=== PATIENT | female | born 1940 | race Caucasian/White ===

== ENCOUNTER → 2016-07-12 | Outpatient (CLI) | payer MEDICARE, BC ==
--- NOTE | 2016-07-12 12:13 | BD ---
EXAMINATION TYPE: MG DEXA axial skeleton. DATE OF EXAM: 07/12/2016 11:13 AM COMPARISON: NONE CLINICAL HISTORY: M81.0 OSTEOPOROSIS Height: 64.3 Weight: 159 FRAX RISK QUESTIONS: Alcohol (3 or more units per day): NO Family History (Parent hip fracture): NO BROKEN HIP Glucocorticoids (More than 3mos): NO (Ex: prednisone, prednisolone, methylprednisolone, dexamethasone, and hydrocortisone). History of Fracture in Adulthood: YES Secondary Osteoporosis: NO 1. Type 1 Diabetes: NO 2. Hyperthyroidism: NO 3. Menopause before 45: NO 4. Malnutrition: NO 5. Chronic liver disease: NO Rheumatoid Arthritis: NO Current Tobacco Use: NO RISK FACTORS HISTORY OF: Other Fractures since Age 49: YES, RIGHT KNEE When: AT 74 YRS OLD Family History of Osteoporosis: YES, HER FATHER Smoke tobacco: NO Drink Alcohol: NO Active: YES Diet low in dairy products/other sources of calcium: NO Postmenopausal woman: YES AT AGE 49 Take estrogen and/or progesterone medications: YES IN THE PAST FOR 9 YRS, NONE NOW Lost more than 2 inches in height since high school: NO Adrenal Insufficiency: NO MEDICATIONS: Prednisone or other steroids: ANTI-HISTIMINES FOR ALLERGIES How Long: FOR YRS Additional Medications: VIT D, STATIN FOR CHOLESTEROL, BP MEDS, CANCER SURGERY, ENDEOMETRIAL CA Additional History: ENDOMET. CA, TOTAL HYST. EXAM MEASUREMENTS: Bone mineral densitometry was performed using the [employer] System. Bone mineral density as measured about the Lumbar spine is: ----- L1-L4(G/cm2): 1.046 T Score Values are as follows: ----- L1: -1.5 ----- L2: -2.4 ----- L3: -1.1 ----- L4: 0.4 ----- L1-L4: -1.1 Bone mineral density THIS IS HER FIRST BONE DENSITY SCAN AT [facility] Bone mineral density about the R hip (g/cm2): 0.826 Bone mineral density about the L hip (g/cm2): 0.852 T Score values are as follows: -----R Neck: -1.5 -----L Neck: -1.3 -----R Intertrochanter: -1.6 -----L Intertrochanter: -1.0 Bone mineral density THIS IS HER FIRST BONE DENSITY SCAN AT [facility] FRAX %'S: FOR MAJOR OSTEOPOROTIC FX: 18.5%..........FOR HIP FX: 3.8% PROBABILITY OF FX IN 1 0 YRS TIME IMPRESSION: Osteopenia (T Score between -2.5 and -1 as noted by T score values There is slightly increased risk of fracture and the patient may be considered for treatment. Re-Screen 1-2 years. FOR BOTH OF HER HIPS AND HER SPINE NOTE: T-SCORE=SD OF THE YOUNG ADULT MEAN.
--- NOTE | 2016-07-13 08:23 | MM ---
Reason for exam: screening (asymptomatic). Last mammogram was performed 2 years ago. History: Patient is postmenopausal and has history of endometrial cancer at age 49. Benign left breast aspiration of the left breast, June 28, 2012. Took estrogen for 9 years 7 months beginning at age 56. Physical Findings: A clinical breast exam by your physician is recommended on an annual basis and results should be correlated with mammographic findings. MG 3D Screening Mammo W/Cad Bilateral CC and MLO view(s) were taken. Prior study comparison: July 10, 2014, bilateral MG screening mammo w CAD. July 09, 2013, bilateral digital screening mammo w/CAD. There are scattered fibroglandular densities. Finding: There are typically benign vascular, round calcifications in both breasts. There is a chronic nodularity bilaterally. There is no dominant lesion. ASSESSMENT: Benign, BI-RAD 2 RECOMMENDATION: Routine screening mammogram of both breasts in 1 year.
== END | disposition home or self-care (01) ==
LOC: RADMAMWWP 10:19
PROVIDERS: ATTEND Internal Medicine
DX: Z12.31 Encounter for screening mammogram for malignant neoplasm of breast (principal); M85.852 Other specified disorders of bone density and structure, left thigh; M85.851 Other specified disorders of bone density and structure, right thigh; M85.88 Other specified disorders of bone density and structure, other site
CPT/HCPCS: 77080; 77063; G0202

== ENCOUNTER → 2017-08-25 | Outpatient (CLI) | payer MEDICARE, BC ==
--- NOTE | 2017-08-26 11:42 | MM ---
Reason for exam: screening (asymptomatic). Last mammogram was performed 1 year and 2 months ago. History: Patient is postmenopausal and has history of endometrial cancer at age 49. Benign left breast aspiration of the left breast, June 28, 2012. Took estrogen for 9 years 7 months beginning at age 56. Physical Findings: A clinical breast exam by your physician is recommended on an annual basis and results should be correlated with mammographic findings. MG 3D Screening Mammo W/Cad Bilateral CC and MLO view(s) were taken. Prior study comparison: July 12, 2016, bilateral MG 3d screening mammo w/cad. July 10, 2014, bilateral MG screening mammo w CAD. There are scattered fibroglandular densities. Stable benign calcifications. There is no discrete abnormality. No significant changes when compared with prior studies. ASSESSMENT: Benign, BI-RAD 2 RECOMMENDATION: Routine screening mammogram of both breasts in 1 year.
== END | disposition home or self-care (01) ==
LOC: RADMAMWWP 09:14
PROVIDERS: ATTEND Internal Medicine
DX: Z12.31 Encounter for screening mammogram for malignant neoplasm of breast (principal)
CPT/HCPCS: 77063; 77067

== ENCOUNTER → 2017-11-14 | Outpatient (CLI) | payer MEDICARE, BC ==
[2017-11-14 11:38] LABS: HCT 40.4 % (34.0-46.0); HGB 13.5 gm/dL (11.4-16.0); MCH 33.9 pg (25.0-35.0); MCHC 33.5 g/dL (31.0-37.0); MCV 101.2 fL (80.0-100.0); Mean Platelet Volume 7.6; Platelet Count 211 k/uL (150-450); RBC 3.99 m/uL (3.80-5.40); RDW 12.8 % (11.5-15.5); WBC 5.8 k/uL (3.8-10.6)
[2017-11-14 11:44] LABS: Anion Gap 13 mmol/L; Blood Urea Nitrogen 25 mg/dL (7-17); Carbon Dioxide 29 mmol/L (22-30); Chloride 100 mmol/L (98-107); Sodium 142 mmol/L (137-145)
[2017-11-14 12:03] LABS: Potassium 4.3 mmol/L (3.5-5.1)
== END | disposition home or self-care (01) ==
LOC: LABPAT 10:49
PROVIDERS: ATTEND Internal Medicine Interventional Cardiology
DX: Z01.812 Encounter for preprocedural laboratory examination (principal); R94.30 Abnormal result of cardiovascular function study, unspecified
CPT/HCPCS: 36415; 80051; 82565; 84520; 85027

== ENCOUNTER 2017-11-24 06:21 | Day surgery (SDC) | payer MEDICARE, BC ==
[2017-11-21 13:37] VITALS: BMI 26.6
[2017-11-24] MEDS ORDERED: ATORVASTATIN 80 MG TAB PO STA (06:30)
[2017-11-24] MEDS ORDERED: ASPIRIN 325 MG TAB PO STA (06:30)
[2017-11-24] MEDS ORDERED: SODIUM CHLORIDE 0.9% 1,000 ML in EMPTY BAG 1 BAG IV ONE (06:30)
[2017-11-24] MEDS ORDERED: ALPRAZolam 0.25 MG TAB PO PRN (06:30)
[2017-11-24] MEDS ORDERED: ALPRAZolam 0.5 MG TAB PO PRN (06:30)
[2017-11-24] MEDS ORDERED: NITROGLYCERIN SL TABS 0.4 MG TAB SUBLINGUAL PRN (06:30)
[2017-11-24 07:15] VITALS: RESP 16; TEMP 98.5
[2017-11-24] MEDS ORDERED: SODIUM CHLORIDE 0.9% 1,000 ML IV ONE (07:21)
[2017-11-24] MEDS ORDERED: ALPRAZolam 0.25 MG TAB PO ONE (07:28)
[2017-11-24] MEDS ORDERED: fentaNYL (PF) 50 MCG/ML 2 ML AMP IV ONE (08:03)
[2017-11-24] MEDS ORDERED: MIDAZOLAM 2 MG/2 ML VIAL IV ONE (08:04)
[2017-11-24] MEDS ORDERED: LIDOCAINE 2% SYG (PF) 100 MG/5 ML MISCELLANE ONE (08:06)
[2017-11-24] MEDS ORDERED: VERAPAMIL SYRINGE (5 MG/10 ML) INTRAARTER ONE (08:11)
[2017-11-24] MEDS ORDERED: IOPAMIDOL-370 125ML BTL INJ ONE (08:25)
[2017-11-24] MEDS ORDERED: RX INFO: IV CONTRAST WAS GIVEN 1 EACH MISC MISCELLANE PRN (08:39)
[2017-11-24] MEDS ORDERED: SODIUM CHLORIDE 0.9% 1,000 ML IV SCH (08:45)
[2017-11-24] MEDS ORDERED: [UNRECOGNIZED DRUG - OTHER] PO SCH (09:00)
[2017-11-24] MEDS ORDERED: HYDROCHLOROTHIAZIDE PO SCH (09:00)
[2017-11-24] MEDS ORDERED: NON-FORMULARY DRUG (Ubidecarenone [Co Q-10] 200 MG) PO SCH (09:00)
[2017-11-24] MEDS ORDERED: NON-FORMULARY DRUG (Calcium/Magnesium/Zinc [Calcium-Magnesium-Zinc Tablet] 1 EACH) PO SCH (09:00)
[2017-11-24] MEDS ORDERED: NON-FORMULARY DRUG (Aspirin [Adult Low Dose Aspirin Ec] 81 MG) PO SCH (09:00)
[2017-11-24] MEDS ORDERED: NON-FORMULARY DRUG (Vitamin B Complex [Vitamin B Complex] 1 EACH) PO SCH (09:00)
[2017-11-24] MEDS ORDERED: FERROUS SULFATE 325 MG TAB PO SCH (09:00)
[2017-11-24] MEDS ORDERED: IRBESARTAN PO SCH (09:00)
[2017-11-24] MEDS ORDERED: NADOLOL PO SCH (09:00)
--- NOTE | 2017-11-24 09:10 | CC ---
CARDIAC CATHETERIZATION REPORT Mrs. Denton is a 77-year-old female with a known history of hypertension, hyperlipidemia, who has been complaining of chest discomfort and diaphoresis with progressive dyspnea. She underwent a myocardial perfusion imaging that revealed an apical anteroseptal wall defect, that was reported possible myocardial infarction although the ejection fraction was reported to be normal. Because of her persistent symptoms and the results of her myocardial perfusion imaging. Recommendation was made regarding cardiac catheterization. The procedure as well as the risks and the complications were discussed with the patient who is in full understanding and agreement. PROCEDURE: Patient was brought to [employer] in a fasting semi-sedated state after receiving fentanyl and Benadryl and achieving moderate conscious sedated state. Using Xylocaine anesthesia in the Seldinger technique, a 6-Urdu sheath was introduced in the right radial artery. Selective right and left coronary angiography performed using 5-Urdu 4 bend, right and left Nu catheter. Multiple views of coronary artery including hemiaxial views were obtained. Following that, a 5-Urdu tight pigtail catheter was introduced in the left ventricle and a 30- degree CLARK view of the left ventricle was obtained. Following that, catheter and sheaths were removed. Hemostasis was obtained with deployment of a TR band. There was no immediate complication. Patient was returned to her room in stable condition. Of note, the patient received 4000 units of intravenous heparin as well as intra-arterial verapamil. FINDINGS: LEFT MAIN: This is a short size vessel trifurcating in left circumflex, left anterior descending artery and ramus intermedius. Left main coronary artery has no evidence of high-grade stenosis. LEFT ANTERIOR DESCENDING ARTERY: This is a large-sized vessel reaching toward the apex with a wrap around apex segment. The left anterior descending artery in the mid segment after the takeoff of the first septal telescope repairer has a 10% plaque. The rest of the vessel has no high-grade stenosis. RAMUS INTERMEDIUS: This is a moderately-sized vessel that has no evidence of high- grade stenosis. LEFT CIRCUMFLEX: This is a nondominant vessel giving rise to 2 obtuse marginal branches. The left circumflex and its branches have no evidence of obstructive coronary artery disease. RIGHT CORONARY ARTERY: This is a large dominant vessel, tortuous, bifurcating to PDA and posterolateral segment and branches. The right coronary artery and its branches have no evidence of obstructive coronary artery disease. LEFT VENTRICULOGRAM: Left ventriculogram is performed in 30-degree CLARK view and revealed normal left ventricular size and systolic function, ejection fraction 60%. HEMODYNAMICS: There was no gradient across the aortic valve. The left ventricle end- diastolic pressure was 18 to 20 mmHg. CONCLUSION: 1. 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 2. Normal left ventricular size and systolic function. RECOMMENDATION: In view of finding anatomy, I recommend continue medical therapy with aggressive risk modifications that have been initiated. Those findings and recommendation were discussed with the patient her family and they are in full understanding and agreement. Duration of procedure is 26 minutes. MMODL / LEXISN: [id number] /
--- NOTE | 2017-11-24 09:13 | LTR ---
November 24, 2017 Re: Annabelle Denton Dear Dr. Carrillo: I had the opportunity to perform cardiac catheterization on Mrs. Denton at [facility] on the 24 of November and a full copy of the procedure note will be forwarded to you. In brief, she was found to have minimal intimal disease involving the mid LAD with a preserved left ventricular size and systolic function. Based on those findings, I recommend to continue medical therapy with aggressive coronary risk modifications that have been initiated. Thank you again for allowing me the opportunity to participate in her care. Please feel free to call for any questions. Sincerely yours, MD NIESHA OwensL / LEXISN: [id number] /
[2017-11-24 12:30] VITALS: BP 134/65; PULSE 60
[2017-11-24] MEDS ORDERED: MONTELUKAST 10 MG TAB PO SCH (21:00)
[2017-11-24] MEDS ORDERED: NON-FORMULARY DRUG (Rosuvastatin Calcium [Crestor] 5 MG) PO SCH (21:00)
== END 2017-11-24 14:14 | disposition home or self-care (01) ==
LOC: CATHCVL 06:21
PROVIDERS: ATTEND Internal Medicine Interventional Cardiology
DX: I25.10 Atherosclerotic heart disease of native coronary artery without angina pectoris (principal); I10 Essential (primary) hypertension; E78.2 Mixed hyperlipidemia; Z79.82 Long term (current) use of aspirin; Z79.899 Other long term (current) drug therapy; Z88.1 Allergy status to other antibiotic agents; Z91.048 Other nonmedicinal substance allergy status
CPT/HCPCS: 93458; C1894; C1769; J2250; J2001; J3010; J1644; Q9967

== ENCOUNTER → 2018-04-21 | Outpatient (CLI) | payer BC, MEDICARE ==
--- NOTE | 2018-04-21 10:17 | US ---
EXAMINATION TYPE: US thyroid st tissue head/neck DATE OF EXAM: 04/21/2018 COMPARISON: Abdomen aorta ultrasound May 14, 2015 CLINICAL HISTORY: E04.2 Multinodular goiter. Goiter GLAND SIZE: Right Lobe: 5.0 x 2.4 x 3.2 cm Overall Parenchyma: heterogenous Left Lobe: 4.5 x 1.4 x 1.7 cm Overall Parenchyma: heterogeneous Isthmus Thickness: 0.4 cm NODULES RIGHT: # of nodules measured on right: 2 1. 1.2 X 0.6 x 1.0 cm solid nodule at the upper pole with well-defined margins; . This nodule is w ider than tall and shows intranodular vascularity. Prior size: no prior 2. 3.0 X 1.5 x 2.6 cm mixed nodule at the mid pole with well-defined margins; . This nodule is wide r than tall and shows intranodular vascularity. Prior size: no prior LEFT: # of nodules measured on left: 0 ISTHMUS: # of nodules measured in the isthmus: 0 Bilateral neck scanned, no evidence of lymphadenopathy. Heterogeneous thyroid redemonstrated with right-sided nodules. Largest nodule unchanged from [address] FNA was performed. Smaller posterior nodule likely was present and stable on this study imag e 768 for reference. IMPRESSION: Stable right-sided nodule suspected, no new nodules are seen. Correlate with FNA results from 2015.
== END | disposition home or self-care (01) ==
LOC: RADUSWWP 08:38
PROVIDERS: ATTEND Internal Medicine
DX: E04.2 Nontoxic multinodular goiter (principal)
CPT/HCPCS: 76536

== ENCOUNTER → 2018-05-26 | Day surgery (SDC) | payer MEDICARE ==
[~2018-05-26] MED LIST: ALPRAZolam 0.25 MG TAB PO STA
[2018-05-26 10:14] VITALS: RESP 16; TEMP 97.7
[2018-05-26 10:44] VITALS: PULSE 64
--- NOTE | 2018-05-26 11:29 | US ---
ULTRASOUND GUIDED FNA THYROID BIOPSY: CLINICAL HISTORY: Two right-sided nodules requested for fine-needle aspiration biopsy FINDINGS: The procedure was explained to the patient. The risks, complications, benefits and alternatives were discussed and any questions were answered. Informed consent was obtained. Patient was placed supin e on the ultrasound table and prepped and draped in the usual sterile fashion. Utilizing a 25 gauge needle, five passes were made into the 2 requested right thyroid nodules. Patient was stable throughout the procedure. Pathology is pending. All elements of maximal barrier technique were utilized. IMPRESSION: 1. Successful ultrasound guided FNA thyroid biopsy.
== END ==
LOC: RADPROMAIN 09:23
PROVIDERS: ATTEND Internal Medicine
DX: E04.1 Nontoxic single thyroid nodule (principal)
CPT/HCPCS: 10022; 76942; 88173; 88305

== ENCOUNTER → 2019-05-28 | Outpatient (CLI) | payer MEDICARE, BC ==
--- NOTE | 2019-05-28 16:36 | BD ---
EXAMINATION TYPE: Axial Bone Density DATE OF EXAM: 05/28/2019 COMPARISON: 07/12/2016 CLINICAL HISTORY: 79-year-old female, postmenopausal screening Height: 64 IN Weight: 157 LBS FRAX RISK QUESTIONS: History of Fracture in Adulthood: RT PATELLA AGE 74 Secondary Osteoporosis: 3. Menopause before 45: AGE 51 TOTAL HYST 4. Malnutrition: YES A TEENAGER RISK FACTORS HISTORY OF: Active: YES Postmenopausal woman: AGE 51 TOTAL HYST Take estrogen and/or progesterone medications: NOT NOW How long: CONTROL FOR 30 YEARS. ESTROGEN FOR 10 YEARS MEDICATIONS: Additional Medications: CALCIUM, VIT D, ROSUVASTATIN CALCIUM, IBERSARTAN, NADOLOL, MONTELUKAST SODIUM , COQ10, IRON, SUPER B COMPLEX, EXAM MEASUREMENTS: Bone mineral densitometry was performed using the [employer] System. Bone mineral density as measured about the Lumbar spine is: ----- L1-L4(G/cm2): 1.042 T Score Values are as follows: ----- L2: -2.5 ----- L3: -1.1 ----- L4: 0.5 ----- L1-L4: -1.1 Bone mineral density has: Increased 0.8% since study of: 07/12/2016 Bone mineral density about the R hip (g/cm2): 0.786 Bone mineral density about the L hip (g/cm2): 0.832 T Score values are as follows: -----R Neck: -1.8 -----L Neck: -1.5 -----R Total: -1.6 -----L Total: -1.1 Bone mineral density has: Decreased -4.2% since study of: 07/12/2016 IMPRESSION: Osteopenia (T Score between -2.5 and -1). There is slightly increased risk of fracture and the patient may be considered for treatment. Re-Screen 2-5 years. NOTE: T-SCORE=SD OF THE YOUNG ADULT MEAN.
--- NOTE | 2019-06-01 12:14 | MM ---
Reason for exam: screening (asymptomatic). Last mammogram was performed 1 year and 9 months ago. History: Patient is postmenopausal and has history of endometrial cancer at age 49. Benign left breast aspiration of the left breast, June 28, 2012. Took estrogen for 9 years 7 months beginning at age 56. Physical Findings: A clinical breast exam by your physician is recommended on an annual basis and results should be correlated with mammographic findings. MG 3D Screening Mammo W/Cad Bilateral CC and MLO view(s) were taken. Prior study comparison: August 25, 2017, bilateral MG 3d screening mammo w/cad. July 12, 2016, bilateral MG 3d screening mammo w/cad. There are scattered fibroglandular densities. There are benign appearing round vascular calcifications bilaterally. There is chronic nodularity in the left breast. ASSESSMENT: Benign, BI-RAD 2 RECOMMENDATION: Routine screening mammogram of both breasts in 1 year.
== END | disposition home or self-care (01) ==
LOC: RADMAMWWP 08:24
PROVIDERS: ATTEND Internal Medicine
DX: Z12.31 Encounter for screening mammogram for malignant neoplasm of breast (principal); M85.80 Other specified disorders of bone density and structure, unspecified site
CPT/HCPCS: 77063; 77067; 77080

== ENCOUNTER → 2021-06-19 | Outpatient (CLI) | payer MEDICARE, BC ==
--- NOTE | 2021-06-19 11:46 | ECHOF ---
Referral Reason:I34.0 nonrheumatic mitral valve regurgitation MEASUREMENTS -------- HEIGHT: 165.1 cm WEIGHT: 72.1 kg BP: 138/68 RVIDd: 2.9 cm (< 3.3) IVSd: 0.8 cm (0.6 - 1.1) LVIDd: 4.8 cm (3.9 - 5.3) LVPWd: 1.0 cm (0.6 - 1.1) IVSs: 1.0 cm LVIDs: 3.2 cm LVPWs: 1.4 cm LA Diam: 3.1 cm (2.7 - 3.8) LAESV Index (A-L): 21.27 ml/m Ao Diam: 3.3 cm (2.0 - 3.7) AV Cusp: 2.0 cm (1.5 - 2.6) MV EXCURSION: 18.221 mm (> 18.000) MV EF SLOPE: 65 mm/s (70 - 150) EPSS: 0.2 cm MV E Alexander: 0.90 m/s MV DecT: 195 ms MV A Alexander: 1.04 m/s MV E/A Ratio: 0.87 RAP: 5.00 mmHg RVSP: 29.52 mmHg FINDINGS -------- Sinus rhythm. Resting bradycardia (HR<60bpm). This was a technically good study. The left ventricular size is normal. Left ventricular wall thickness is normal. Overall left vent ricular systolic function is normal with, an EF between 55 - 60 %. The right ventricle is normal in size. Normal LA size by volume 22+/-6 ml/m2. The right atrium is normal in size. Aneurysmal Interatrial septum. The aortic valve is trileaflet, and appears structurally normal. No aortic stenosis or regurgitation. Mild mitral regurgitation is present. Mild tricuspid regurgitation present. Right ventricular systolic pressure is normal at < 35 mmHg. There is no pulmonic regurgitation present. The aortic root size is normal. Normal inferior vena cava with normal inspiratory collapse consistent with estimated right atrial pre ssure of 5 mmHg. There is no pericardial effusion. CONCLUSIONS -------- 1. The left ventricular size is normal. 2. Left ventricular wall thickness is normal. 3. Overall left ventricular systolic function is normal with, an EF between 55 - 60 %. 4. Aneurysmal Interatrial septum. 5. The aortic valve is trileaflet, and appears structurally normal. No aortic stenosis or regurgitati on. 6. Mild mitral regurgitation is present. 7. Mild tricuspid regurgitation present. 8. There is no pulmonic regurgitation present. 9. The aortic root size is normal. 10. There is no pericardial effusion. PRACTICE SUPPORT SPECIALIST: Jazzy Lyles RDCS
--- NOTE | 2021-06-19 15:40 | BD ---
EXAMINATION TYPE: Axial Bone Density DATE OF EXAM: 06/19/2021 COMPARISON: 05/28/2019 CLINICAL HISTORY: Height: 63.5 IN Weight: 160 LBS FRAX RISK QUESTIONS: History of Fracture in Adulthood: RT KNEE FX AGE 75 Secondary Osteoporosis: 3. Menopause before 45: TOTAL HYST AGE 49 RISK FACTORS HISTORY OF: Active: YES Postmenopausal woman: TOTAL HYST AGE 49 Take estrogen and/or progesterone medications: NOT NOW How long: TOOK AGE [age] MEDICATIONS: Additional Medications: CALCIUM, VIT D, COLLAGEN, ROSUVASTATIN,IBERSARTAN, NADALOL, MONTELUKAST, BABY ASPIRIN, COQ10, SUPER 8 COMPLEX, B12, FOLIC ACID, ZINC Additional History: ENDOMETRIAL CANCER AGE 49 EXAM MEASUREMENTS: Bone mineral densitometry was performed using the [employer]. Bone mineral density as measured about the Lumbar spine is: ----- L1-L4(G/cm2): 1.095 T Score Values are as follows: ----- L2: -2.4 ----- L3: -0.3 ----- L4: 1.5 ----- L1-L4: -0.7 Bone mineral density has: Increased 6.8% since study of: 05/28/2019 Bone mineral density about the R hip (g/cm2): 0.772 Bone mineral density about the L hip (g/cm2): 0.808 T Score values are as follows: -----R Neck: -1.9 -----L Neck: -1.7 -----R Total: -1.7 -----L Total: -1.2 Bone mineral density has: Decreased -1.5% since study of: 05/28/2019 IMPRESSION: Osteopenia (T Score between -2.5 and -1). There is slightly increased risk of fracture and the patient may be considered for treatment. Re-Screen 2-5 years. NOTE: T-SCORE=SD OF THE YOUNG ADULT MEAN.
--- NOTE | 2021-06-19 16:24 | US ---
EXAMINATION TYPE: US carotid duplex BILAT DATE OF EXAM: 06/19/2021 COMPARISON: NONE CLINICAL HISTORY: I65.23 CAROTID STENOSIS. Known thyroid disease. EXAM MEASUREMENTS: RIGHT: Peak Systolic Velocity (PSV) cm/sec ----- Right CCA: 69.0 ----- Right ICA: 77.8 ----- Right ECA: 54.6 ICA/CCA ratio: 1.1 RIGHT: End Diastole cm/sec ----- Right CCA: 18.4 ----- Right ICA: 26.0 ----- Right ECA: 0.0 LEFT: Peak Systolic Velocity (PSV) cm/sec ----- Left CCA: 65.6 ----- Left ICA: 82.4 ----- Left ECA: 44.6 ICA/CCA ratio: 1.3 LEFT: End Diastole cm/sec ----- Left CCA: 21.6 ----- Left ICA: 37.1 ----- Left ECA: 0.0 VERTEBRALS (direction of flow): Right Vertebral: Antegrade Left Vertebral: Antegrade Rhythm: Normal Mild, mixed intimal wall thickening is noted at bilateral carotid bifurcation and PSV is wnl bilatera lly. IMPRESSION: 1. Atheromatous plaquing and wall thickening without significant flow-limiting stenosis. Criteria for Assigning % of Stenosis / Diameter reduction (Estimation based on the indirect measurements of the internal carotid artery velocities (ICA PSV). 1. Normal (no stenosis)=ICA PSV < 125 cm/s: ratio < 2.0: ICA EDV<40 cm/s. 2. Less than 50% stenosis=ICA PSV < 125 cm/s: ratio < 2.0: ICA EDV<40 cm/s. 3. 50 to 69% stenosis=ICA PSV of 125 to 230 cm/s: ration 2.0 ? 4.0: ICA EDV 40-100 cm/s. 4. Greater than 70% stenosis to near occlusion= ICA PSV > 230 cm/s: ratio > 4.0: ICA EDV > 100 cm/s. 5. Near occlusion= ICA PSV velocities may be low or undetectable: variable ratio and ICA EDV. 6. Total occlusion=unable to detect flow.
--- NOTE | 2021-06-22 12:01 | MM ---
Reason for exam: screening (asymptomatic). Last mammogram was performed 2 years and 1 month ago. History: Patient is postmenopausal and has history of endometrial cancer at age 49. Benign left breast aspiration of the left breast, June 28, 2012. Took estrogen for 9 years 7 months beginning at age 56. Physical Findings: A clinical breast exam by your physician is recommended on an annual basis and results should be correlated with mammographic findings. MG 3D Screening Mammo W/Cad Bilateral CC and MLO view(s) were taken. Prior study comparison: May 28, 2019, bilateral MG 3d screening mammo w/cad. August 25, 2017, bilateral MG 3d screening mammo w/cad. There are scattered fibroglandular densities. There is chronic nodularity bilaterally. No significant changes when compared with prior studies. ASSESSMENT: Benign, BI-RAD 2 RECOMMENDATION: Routine screening mammogram of both breasts in 1 year.
== END | disposition home or self-care (01) ==
LOC: RADMAMWWP 07:18
PROVIDERS: ATTEND Internal Medicine
DX: Z12.31 Encounter for screening mammogram for malignant neoplasm of breast (principal); M85.89 Other specified disorders of bone density and structure, multiple sites; I65.23 Occlusion and stenosis of bilateral carotid arteries; I08.1 Rheumatic disorders of both mitral and tricuspid valves; I25.3 Aneurysm of heart; Z78.0 Asymptomatic menopausal state
CPT/HCPCS: 77063; 77067; 77080; 93306; 93880

== ENCOUNTER 2022-04-29 08:54 | Emergency (ER) | payer MEDICARE, BC ==
[2022-04-29] MEDS ORDERED: ACETAMINOPHEN TAB 500 MG TAB PO STA (10:24)
--- NOTE | 2022-04-29 10:37 | ED ---
General Adult HPI - General Chief complaint: Nausea/Vomiting/Diarrhea Stated complaint: Sore Throat, Vomiting, Diarrhea Time Seen by Provider: 04/29/22 09:37 Source: patient, RN notes reviewed Mode of arrival: ambulatory Limitations: no limitations - History of Present Illness Initial comments: Patient is a pleasant 82-year-old female presenting to the emergency Department with multiple symptoms. Patient has had cough and rhinorrhea. Patient does have some chest congestion. Patient has had some loose stool. Patient has fatigue and chills. Patient is concerned she could have COVID-19 infection again. No dyspnea. Patient is tolerating oral intake and does not feel she needs IV fluids. - Related Data Home Medications Medication Instructions Recorded Confirmed Irbesartan/Hydrochlorothiazide 1 each PO DAILY 05/07/15 05/26/18 [Irbesartan-Hctz 150-12.5 mg Tb] nadoloL [Nadolol] 40 mg PO BID 05/07/15 05/26/18 Aspirin [Adult Low Dose Aspirin EC] 81 mg PO DAILY 11/21/17 05/26/18 Calcium/Magnesium/Zinc 1 each PO DAILY 11/21/17 05/26/18 [Blzrjfm-Rnosrscak-Xtts Tablet] Ferrous Sulfate [Feosol] 325 mg PO DAILY 11/21/17 05/26/18 Montelukast Sodium [Singulair] 10 mg PO HS 11/21/17 05/26/18 Rosuvastatin Calcium [Crestor] 5 mg PO HS 11/21/17 05/26/18 Ubidecarenone [Co Q-10] 200 mg PO DAILY 11/21/17 05/26/18 Vitamin B Complex 1 each PO DAILY 11/21/17 05/26/18 Previous Rx's Medication Instructions Recorded Nirmatrelvir/Ritonavir [Paxlovid 3 each PO BID #30 tab 04/29/22 2X150 mg-100 mg (Eua)] Allergies Allergy/AdvReac Type Severity Reaction Status Date / Time cephalexin monohydrate Allergy Rash/Hives Verified 04/29/22 09:21 [From Keflex] Iodinated Contrast Media Allergy Anaphylaxis Verified 04/29/22 09:21 [Iodinated Contrast Media - IV Dye] Review of Systems ROS Statement: Those systems with pertinent positive or pertinent negative responses have been documented in the HPI. ROS Other: All systems not noted in ROS Statement are negative. Constitutional: Reports: chills Eyes: Denies: eye pain ENT: Reports: throat pain. Denies: ear pain Respiratory: Reports: as per HPI, cough Cardiovascular: Denies: chest pain Endocrine: Reports: fatigue Gastrointestinal: Reports: as per HPI. Denies: vomiting Genitourinary: Denies: dysuria Musculoskeletal: Denies: back pain Skin: Denies: rash Past Medical History Past Medical History: Cancer, GERD/Reflux, Hypertension, Myocardial Infarction ([place]), Thyroid Disorder Additional Past Medical History / Comment(s): "Current hiatal hernia causing SOB",migraines, uterine ca, broken toes, broken knee, hx kidney stones, "heart murmur and 3 leaky valves", thyroid nodules-has had thyroid bx 2 @ [facility], hiatal hernia with shortness of breath, and anemia Last Myocardial Infarction Date:: unknown History of Any Multi-Drug Resistant Organisms: None Reported Past Surgical History: Appendectomy, Hysterectomy, Orthopedic Surgery Additional Past Surgical History / Comment(s): d&c times 2, kidney stone surgery, full hysterectomy and oopherectomy, shoulder rebuilt - RT, foot surgeries for bunions, brad cataract surgery with lens implants Past Anesthesia/Blood Transfusion Reactions: No Reported Reaction Past Psychological History: No Psychological Hx Reported Smoking Status: Never smoker Past Alcohol Use History: None Reported Past Drug Use History: None Reported - Past Family History Daughter(s) Family Medical History: Cancer Additional Family Medical History / Comment(s): cervical cancer Sister(s) Family Medical History: Cancer, Diabetes Mellitus Additional Family Medical History / Comment(s): thyroidectomy, bowel and liver,bone ca Father Family Medical History: Cancer, Mitral Valve Prolapse (MVP) Additional Family Medical History / Comment(s): bowel cancer, aorta valve replaced. General Exam Limitations: no limitations General appearance: alert, in no apparent distress Head exam: Present: normocephalic Eye exam: Present: normal appearance ENT exam: Present: normal oropharynx Neck exam: Present: normal inspection. Absent: tenderness, meningismus Respiratory exam: Present: normal lung sounds bilaterally Cardiovascular Exam: Present: regular rate, normal rhythm GI/Abdominal exam: Present: soft. Absent: tenderness Extremities exam: Present: normal inspection. Absent: pedal edema, calf tenderness Neurological exam: Present: alert Psychiatric exam: Present: normal affect, normal mood Skin exam: Present: normal color Course Vital Signs 04/29/22 09:19 Temperature 99.3 F Pulse Rate 82 Respiratory 16 Rate Blood Pressure 137/82 O2 Sat by Pulse 96 Oximetry Medical Decision Making - Medical Decision Making Patient updated on results. Patient does not feel she needs IV hydration. - Lab Data Lab Results 04/29/22 04/29/22 Range/Units 09:24 09:24 Coronavirus (PCR) Detected A (Not Detectd) Influenza Type A RNA Not Detected (Not Detectd) Influenza Type B (PCR) Not Detected (Not Detectd) Disposition Clinical Impression: COVID-19 Disposition: HOME SELF-CARE Condition: Stable Instructions (If sedation given, give patient instructions): COVID-19 (Coronavirus Disease 2019) (ED) Additional Instructions: Hold your Crestor while taking Paxlovid. Prescription has been sent to pharmacy. Please do follow-up to primary care physician in the next or 2 for recheck. Return for not tolerating fluids, difficulty breathing, worsening symptoms or other concerns. [id number] Tylenol or Motrin as needed. Prescriptions: Nirmatrelvir/Ritonavir [Paxlovid 2X150 mg-100 mg (Eua)] 3 each PO BID #30 tab Is patient prescribed a controlled substance at d/c from ED?: No Referrals: Renetta Carrillo MD [Primary Care Provider] - 1-2 days Time of Disposition: 10:37
[2022-04-29 10:57] VITALS: BP 130/81; PULSE 80; RESP 18; TEMP 99.1
== END 2022-04-29 10:57 | disposition home or self-care (01) ==
LOC: EC 08:54
DX: U07.1 COVID-19 (principal); K21.9 Gastro-esophageal reflux disease without esophagitis; I10 Essential (primary) hypertension; I25.2 Old myocardial infarction; E07.9 Disorder of thyroid, unspecified; Z79.82 Long term (current) use of aspirin; Z91.041 Radiographic dye allergy status; Z88.1 Allergy status to other antibiotic agents; Z79.899 Other long term (current) drug therapy; Z79.02 Long term (current) use of antithrombotics/antiplatelets
CPT/HCPCS: 87502; 87635; 99284

== ENCOUNTER → 2022-07-02 | Outpatient (CLI) | payer MEDICARE, BC ==
--- NOTE | 2022-07-02 11:48 | XR ---
EXAMINATION TYPE: XR foot complete LT DATE OF EXAM: 07/02/2022 CLINICAL HISTORY: Pain. TECHNIQUE: Frontal, lateral, and oblique images of the left foot are obtained. COMPARISON: None FINDINGS: There is acute minimally displaced somewhat comminuted fracture through the distal diaphys is of the second distal phalanx. There are cerclage wire through a healed fracture proximal metadiaph ysis first proximal phalanx. Evidence of prior bunion surgery with slight hallux valgus positioning first metatarsophalangeal joint still present. The joint spaces in the left foot appear within normal limits. Small inferior calcaneal spur. The overlying soft minimally displaced appears unremarkable. IMPRESSION: There is an acute minimally displaced comminuted fracture through distal diaphysis of th e second distal phalanx.
--- NOTE | 2022-07-05 08:27 | MM ---
Reason for Exam: Screening (asymptomatic). Last screening mammogram was performed 12 month(s) ago. Patient History: Menarche at age 12. First Full-Term at age 17. Left ovary removed at age 49. Right ovary removed at age 49. Hysterectomy at age 49. Postmenopausal. Patient has history of breast feeding. Endometrial cancer, age 49. Estrogen for 9 years, 7 months, from age 56 until age 65. 06/28/2012, Benign Cyst Aspiration on the left side. Risk Values: Yesica 5 year model risk: 1.1%. NCI Lifetime model risk: 1.3%. Prior Study Comparison: 08/25/2017 Bilateral Screening Mammogram, [facility]. 05/28/2019 Bilateral Screening Mammogram, [facility]. 06/19/2021 Bilateral Screening Mammogram, [facility]. Tissue Density: There are scattered fibroglandular densities. Findings: Analyzed By CAD. There are some scattered and loosely grouped benign-appearing round calcifications redemonstrated bilaterally. Benign-appearing vascular calcification is redemonstrated bilaterally. Benign-appearing bilateral axillary lymph nodes are again seen. There is stable 6 mm round circumscribed mass in the inner slightly lower left breast. There is no suspicious new group of microcalcifications or new suspicious mass in either breast. Overall Assessment: Benign, BI-RAD 2 Management: Screening Mammogram of both breasts in 1 year. A clinical breast exam by your physician is recommended on an annual basis and results should be correlated with mammographic findings. Electronically signed and approved by: Eugenio Styles M.D.
== END | disposition home or self-care (01) ==
LOC: RADMAMWWP 11:03
PROVIDERS: ATTEND Internal Medicine
DX: Z12.31 Encounter for screening mammogram for malignant neoplasm of breast (principal); S62.631A Displaced fracture of distal phalanx of left index finger, initial encounter for closed fracture; M79.672 Pain in left foot; Z78.0 Asymptomatic menopausal state
CPT/HCPCS: 77063; 77067

== ENCOUNTER 2022-10-22 16:29 | Observation (INO) | payer MEDICARE, BC ==
[2022-10-22] MEDS ORDERED: KETOROLAC 15 MG/ML 1 ML VIAL IVP STA (18:33)
[2022-10-22] MEDS ORDERED: SODIUM CHLORIDE 0.9% 500 ML 500 ML IV STA (18:45)
[2022-10-22] MEDS ORDERED: SODIUM CHLORIDE 0.9% 1,000 ML IV STA (18:45)
--- NOTE | 2022-10-22 18:45 | ED ---
Female Urogenital HPI - General Chief complaint: Urogenital Stated complaint: kidney stones Time Seen by Provider: 10/22/22 18:09 Source: patient, family, RN notes reviewed Mode of arrival: ambulatory Limitations: no limitations - History of Present Illness Initial comments: 82-year-old female with a history of previous kidney stones who states she had the onset 2 days ago of some right-sided flank pain. She was seen at a clinic today and told she had a UTI with positive hematuria and possibly kidney stone. She denies any overt fevers or chills or sweats she did have some nausea however pain is sharp and feels like her previous kidney stone 10+/10 in severity. It does not hurt to breathe or move. No other current complaints or modifying fact ors MD Complaint: other - Related Data Home Medications Medication Instructions Recorded Confirmed Irbesartan/Hydrochlorothiazide 1 tab PO DAILY 05/07/15 10/22/22 [Irbesartan-Hctz 150-12.5 mg Tb] nadoloL [Nadolol] 40 mg PO BID 05/07/15 10/22/22 Ferrous Sulfate [Feosol] 325 mg PO DAILY 11/21/17 10/22/22 Montelukast Sodium [Singulair] 10 mg PO HS 11/21/17 10/22/22 Ubidecarenone [Co Q-10] 200 mg PO DAILY 11/21/17 10/22/22 Vitamin B Complex 1 cap PO DAILY 11/21/17 10/22/22 Cholecalciferol [Vitamin D3 (25 50 mcg PO DAILY 08/02/22 10/22/22 Mcg = 1000 Iu)] Folic Acid 0.8 mg PO DAILY 08/02/22 10/22/22 Zinc Gluconate [Zinc] 50 mg PO DAILY 08/02/22 10/22/22 Rosuvastatin [Crestor] 10 mg PO HS 10/22/22 10/22/22 Allergies Allergy/AdvReac Type Severity Reaction Status Date / Time cephalexin monohydrate Allergy Rash/Hives Verified 10/22/22 16:50 [From Keflex] Iodinated Contrast Media Allergy Anaphylaxis Verified 10/22/22 16:50 [Iodinated Contrast Media - IV Dye] Review of Systems ROS Statement: Those systems with pertinent positive or pertinent negative responses have been documented in the HPI. ROS Other: All systems not noted in ROS Statement are negative. Past Medical History Past Medical History: Cancer, GERD/Reflux, Hypertension, Myocardial Infarction ([place]), Thyroid Disorder Additional Past Medical History / Comment(s): positive cologuard, migraines, uterine ca, broken toes, broken knee, hx kidney stones, "heart murmur and 3 leaky valves", thyroid nodules-has had thyroid bx 2 @ [facility], hiatal hernia with shortness of breath, and anemia,covid infections Apr 2022 and September 2019 Last Myocardial Infarction Date:: unknown History of Any Multi-Drug Resistant Organisms: None Reported Past Surgical History: Appendectomy, Hysterectomy, Orthopedic Surgery Additional Past Surgical History / Comment(s): d&c times 2, kidney stone surgery, full hysterectomy and oopherectomy, shoulder rebuilt - RT, foot surgeries for bunions, brad cataract surgery with lens implants,Hiatal hernia repair,ectopic -ovary and tube removed Past Anesthesia/Blood Transfusion Reactions: No Reported Reaction Past Psychological History: No Psychological Hx Reported Smoking Status: Never smoker Past Alcohol Use History: None Reported Past Drug Use History: None Reported - Past Family History Daughter(s) Family Medical History: Cancer Additional Family Medical History / Comment(s): cervical cancer Sister(s) Family Medical History: Cancer, Diabetes Mellitus Additional Family Medical History / Comment(s): thyroidectomy, bowel and liver,bone ca Father Family Medical History: Cancer, Mitral Valve Prolapse (MVP) Additional Family Medical History / Comment(s): bowel cancer, aorta valve replaced. General Exam - General Exam Comments Initial Comments: This is a well-developed well-nourished awake alert oriented 4 female Limitations: no limitations General appearance: alert, anxious Head exam: Present: atraumatic, normocephalic, normal inspection Eye exam: Present: normal appearance, PERRL, EOMI. Absent: scleral icterus, conjunctival injection, periorbital swelling ENT exam: Present: normal exam, mucous membranes moist Neck exam: Present: normal inspection, full ROM. Absent: tenderness, meningismus, lymphadenopathy Respiratory exam: Present: normal lung sounds bilaterally. Absent: respiratory distress, wheezes, rales, rhonchi, stridor Cardiovascular Exam: Present: regular rate, normal rhythm, normal heart sounds. Absent: systolic murmur, diastolic murmur, rubs, gallop, clicks GI/Abdominal exam: Present: soft, tenderness (Very mild right flank tenderness palpation no guarding rebound masses or bruits), normal bowel sounds. Absent: distended, guarding, rebound, rigid Extremities exam: Present: normal inspection, full ROM, normal capillary refill. Absent: tenderness, pedal edema, joint swelling, calf tenderness Back exam: Present: normal inspection, CVA tenderness (R) (Some tenderness to percussion) Neurological exam: Present: alert, oriented X3, CN II-XII intact Psychiatric exam: Present: normal affect, normal mood Skin exam: Present: warm, dry, intact, normal color. Absent: rash Course Vital Signs 10/22/22 16:46 Temperature 98 F Pulse Rate 75 Respiratory 18 Rate Blood Pressure 192/97 O2 Sat by Pulse 98 Oximetry Medical Decision Making - Medical Decision Making Patient did require additional pain medication as pain Recurring -01/13 in se verity. I did discuss the findings with the patient family and also with Dr. Wagner in [place] for Dr. Clark. The patient be admitted she is nothing by mouth after midnight she will likely have a procedure done in the a.m.Was pt. sent in by a medical professional or institution (, PA, WEIGHT REDUCING TECHNICIAN, urgent care, hospital, or [facility]...) When possible be specific @ -No Did you speak to anyone other than the patient for history (EMS, parent, family, police, friend...)? What history was obtained from this source @ -Daughter and son Did you review nursing and triage notes (agree or disagree)? Why? @ -I reviewed and agree with nursing and triage notes Were old charts reviewed (outside hosp., previous admission, EMS record, old EKG, old radiological studies, urgent care reports/EKG's, [facility] records)? Report findings @ -Lab values reviewed for kidney function at all] Differential Diagnosis (chest pain, altered mental status, abdominal pain women, abdominal pain men, vaginal bleeding, weakness, fever, dyspnea, syncope, headache, dizziness, GI bleed, back pain, seizure, CVA, palpatations, mental health, musculoskeletal)? @ -not applicable EKG interpreted by me (3pts min.). @ -As above X-rays interpreted by me (1pt min.). @ -None done CT interpreted by me (1pt min.). @ -As above U/S interpreted by me (1pt. min.). @ -None done What testing was considered but not performed or refused? (CT, X-rays, U/S, labs)? Why? @ -None What meds were considered but not given or refused? Why? @ -None Did you discuss the management of the patient with other professionals (professionals i.e. DrPuja, PA, WEIGHT REDUCING TECHNICIAN, lab, RT, psych nurse, social work coordinator, fly raiser lockstitch, teacher, dog control officer, piano case maker)? Give summary @ -No Was smoking cessation discussed for >3mins.? @ -No Was critical care preformed (if so, how long)? @ -No Were there social determinants of health that impacted care today? How? (Homelessness, low income, unemployed, alcoholism, drug addiction, transportation, low edu. Level, literacy, decrease access to med. care, assisted, re hab)? @ -Patient lives alone Was there de-escalation of care discussed even if they declined (Discuss DNR or withdrawal of care, Hospice)? DNR status @ -No What co-morbidities impacted this encounter? (DM, HTN, Smoking, COPD, CAD, Cancer, CVA, ARF, Chemo, Hep., AIDS, mental health diagnosis, sleep apnea, morbid obesity)? @ -History of cancer history of kidney stones hypertension history of [place]] Was patient admitted / discharged? Hospital course, mention meds given and route, prescriptions, significant lab abnormalities, going to OR and other pertinent info. @ -The patient was admitted for inpatient evaluation and treatment and urology consultation Undiagnosed new problem with uncertain prognosis? @ -No Drug Therapy requiring intensive monitoring for toxicity (Heparin, Nitro, Insulin, Cardizem)? @ -No Were any procedures done? @ -No Diagnosis/symptom? @ -Ureterolithiasis, hydroureter, intractable pain Acute, or Chronic, or Acute on Chronic? @ -Acute Uncomplicated (without systemic symptoms) or Complicated (systemic symptoms)? @ -default Side effects of treatment? @ -No Exacerbation, Progression, or Severe Exacerbation? @ -No Poses a threat to life or bodily function? How? (Chest pain, [place], [place], pneumonia, PE, COPD, DKA, ARF, appy, cholecystitis, CVA, Diverticulitis, Homicidal, Suicidal, threat to staff... and all critical care pts) @ -No - Lab Data Result diagrams: 10/22/22 18:30 10/22/22 18:39 Lab Results 10/22/22 10/22/22 10/22/22 Range/Units 18:30 18:30 18:39 WBC 12.8 H (3.8-10.6) k/uL RBC 4.18 (3.80-5.40) m/uL Hgb 13.9 (11.4-16.0) gm/dL Hct 42.1 (34.0-46.0) % MCV 100.6 H (80.0-100.0) fL MCH 33.2 (25.0-35.0) pg MCHC 33.0 (31.0-37.0) g/dL RDW 12.3 (11.5-15.5) % Plt Count 216 (150-450) k/uL MPV 8.9 Neutrophils % 78 % Lymphocytes % 14 % Monocytes % 5 % Eosinophils % 3 % Basophils % 0 % Neutrophils # 9.9 H (1.3-7.7) k/uL Lymphocytes # 1.7 (1.0-4.8) k/uL Monocytes # 0.6 (0-1.0) k/uL Eosinophils # 0.4 (0-0.7) k/uL Basophils # 0.0 (0-0.2) k/uL Sodium 136 L (137-145) mmol/L Potassium 4.9 (3.5-5.1) mmol/L Chloride 103 (98-107) mmol/L Carbon Dioxide 24 (22-30) mmol/L Anion Gap 9 mmol/L BUN 21 H (7-17) mg/dL Creatinine 0.80 (0.52-1.04) mg/dL Est GFR (CKD-EPI)AfAm 79 (>60 ml/min/1.73 sqM) Est GFR (CKD-EPI)NonAf 69 (>60 ml/min/1.73 sqM) Glucose 115 H (74-99) mg/dL Plasma Lactic Acid Vahid 1.0 (0.7-2.0) mmol/L Calcium 9.9 (8.4-10.2) mg/dL Total Bilirubin 0.8 (0.2-1.3) mg/dL AST 42 H (14-36) U/L ALT 24 (4-34) U/L Alkaline Phosphatase 70 (38-126) U/L Creatine Kinase 75 (30-135) U/L Troponin I (0.000-0.034) ng/mL Total Protein 7.4 (6.3-8.2) g/dL Albumin 4.5 (3.5-5.0) g/dL 10/22/22 Range/Units 18:50 WBC (3.8-10.6) k/uL RBC (3.80-5.40) m/uL Hgb (11.4-16.0) gm/dL Hct (34.0-46.0) % MCV (80.0-100.0) fL MCH (25.0-35.0) pg MCHC (31.0-37.0) g/dL RDW (11.5-15.5) % Plt Count (150-450) k/uL MPV Neutrophils % % Lymphocytes % % Monocytes % % Eosinophils % % Basophils % % Neutrophils # (1.3-7.7) k/uL Lymphocytes # (1.0-4.8) k/uL Monocytes # (0-1.0) k/uL Eosinophils # (0-0.7) k/uL Basophils # (0-0.2) k/uL Sodium (137-145) mmol/L Potassium (3.5-5.1) mmol/L Chloride (98-107) mmol/L Carbon Dioxide (22-30) mmol/L Anion Gap mmol/L BUN (7-17) mg/dL Creatinine (0.52-1.04) mg/dL Est GFR (CKD-EPI)AfAm (>60 ml/min/1.73 sqM) Est GFR (CKD-EPI)NonAf (>60 ml/min/1.73 sqM) Glucose (74-99) mg/dL Plasma Lactic Acid Vahid (0.7-2.0) mmol/L Calcium (8.4-10.2) mg/dL Total Bilirubin (0.2-1.3) mg/dL AST (14-36) U/L ALT (4-34) U/L Alkaline Phosphatase (38-126) U/L Creatine Kinase (30-135) U/L Troponin I <0.012 (0.000-0.034) ng/mL Total Protein (6.3-8.2) g/dL Albumin (3.5-5.0) g/dL - Radiology Data Interpreted by me: I did interpret the imaging evidence of a 7 x 10 mm stone at the distal right ureter with hydroureter. Disposition Clinical Impression: Kidney stone on right side, Hydroureter on right, Intractable pain Disposition: ADMITTED IP TO THIS [facility] Condition: Fair Referrals: Renetta Carrillo MD [Primary Care Provider] - 1-2 days Decision Date: 10/22/22 Decision Time: 22:30
[2022-10-22 18:48] LABS: Basophils % (A) 0 %; Eosinophils # (A) 0.4 k/uL (0-0.7); Eosinophils % (A) 3 %; HCT 42.1 % (34.0-46.0); HGB 13.9 gm/dL (11.4-16.0); Lymphocytes # (A) 1.7 k/uL (1.0-4.8); Lymphocytes % (A) 14 %; MCH 33.2 pg (25.0-35.0); MCV 100.6 fL (80.0-100.0); Mean Platelet Volume 8.9; Monocytes # (A) 0.6 k/uL (0-1.0); Monocytes % (A) 5 %; Neutrophils # (A) 9.9 k/uL (1.3-7.7); Neutrophils % (A) 78 %; Platelet Count 216 k/uL (150-450); RBC 4.18 m/uL (3.80-5.40); RDW 12.3 % (11.5-15.5); WBC 12.8 k/uL (3.8-10.6)
[2022-10-22 19:03] LABS: Calcium 9.9 mg/dL (8.4-10.2); Total Bilirubin 0.8 mg/dL (0.2-1.3)
[2022-10-22 19:25] LABS: Total Protein 7.4 g/dL (6.3-8.2)
[2022-10-22 19:26] LABS: Albumin 4.5 g/dL (3.5-5.0); Potassium 4.9 mmol/L (3.5-5.1)
--- NOTE | 2022-10-22 20:03 | CT ---
EXAMINATION TYPE: CT abdomen pelvis wo con CT DLP: 584.2 mGycm, Automated exposure control for dose reduction was used. DATE OF EXAM: 10/22/2022 7:16 PM COMPARISON: CT abdomen pelvis most recent from 01/07/2013 CLINICAL INDICATION:Female, 82 years old with history of Right flank pain, kidney stone suspected; fl ank pain. poss kidney stone TECHNIQUE: Axial CT of the abdomen and pelvis. Sagittal and coronal reformats were created on a [employer] workstation. Contrast used: None Oral contrast used: without Oral Contrast FINDINGS: LOWER CHEST: Unremarkable ABDOMEN LIVER: Left hepatic lobe complex cyst measuring up to 30 mm slightly larger than prior wire was 21 mm in 2013. GALLBLADDER AND BILE DUCTS: Dilation of the extrahepatic biliary system at 11 mm at the common bile d uct. Gallbladder is within normal limits. PANCREAS: Unremarkable. SPLEEN: Unremarkable. ADRENAL GLANDS: Right adrenal lipid rich adenoma with average Hounsfield units -23 and measuring up t o 21 mm. The left adrenal gland is unremarkable.. KIDNEYS AND URETERS: Moderate right hydronephrosis secondary obstructing 10 x 7 mm calculus in the ur eteropelvic junction. Additional nonobstructing left renal calculi measuring up to 6 mm. No left hydr onephrosis. PELVIS BLADDER: Unremarkable REPRODUCTIVE: Unremarkable. ABDOMEN & PELVIS STOMACH AND BOWEL: No evidence of bowel obstruction. Moderate hiatal hernia. Scattered colonic divert icula. PERITONEUM/RETROPERITONEUM: No evidence of pneumoperitoneum or free fluid. VASCULATURE: Mild atherosclerotic calcifications are present throughout the abdominal aorta and its b ranches. No evidence of aortic aneurysm. MUSCULOSKELETAL: No acute osseous abnormalities, multilevel disc degeneration changes throughout the spine with at least moderate spinal canal stenosis at L4-L5. LYMPH NODES: No gross evidence for lymphadenopathy. SOFT TISSUE/ABDOMINAL WALL: Fat-containing umbilical hernia. IMPRESSION: 1. Moderate right hydronephrosis secondary obstructing 10 x 7 mm calculus in the ureteropelvic junct ion. Additional nonobstructing renal calculi on the left. 2. Mild increase in size of left hepatic lobe complicated lesion measuring up to 31 mm in today's ex am. This can be completely characterized with MRI liver mass protocol if clinically warranted. 3. Moderate hiatal hernia. 4. Clonic diverticulosis. 5. Right adrenal adenoma. 6. Extra hepatic biliary dilation more than would be expected for patient's age, if there is concern consider MRCP/MRI with IV contrast.
[2022-10-22] MEDS ORDERED: KETOROLAC 15 MG/ML 1 ML VIAL IM STA (20:27)
[2022-10-22] MEDS ORDERED: NALOXONE 0.4 MG/ML 1 ML VIAL IV PRN (23:03)
[2022-10-22] MEDS: SODIUM CHLORIDE 0.9% 1,000 ML IV SCH (23:11)
--- NOTE | 2022-10-23 02:42 | XR ---
EXAM: XR Abdomen, 1 View CLINICAL HISTORY: ITS.REASON XR Reason: Right flank pain TECHNIQUE: Frontal supine view of the abdomen/pelvis. COMPARISON: CT abdomen pelvis 10/22/2022. FINDINGS: Gastrointestinal tract: Unremarkable. No dilation. Bones/joints: Approximately 1 cm opacity superior to the right sacroiliac joint may correlate with the right ureteral calculus based on the CT. Possible 4 mm calculus overlying the right sacral ala. Degenerative changes of the spine and scoliosis. IMPRESSION: Approximately 1 cm opacity superior to the right sacroiliac joint may correlate with the right ureteral calculus based on the CT. Possible 4 mm calculus overlying the right sacral ala.
[2022-10-23] MEDS: HYDROmorphone 0.5 MG/0.5 ML SYRINGE IVP PRN ×2 (02:48→08:25)
[2022-10-23] MEDS: SODIUM CHLORIDE 0.9% 1,000 ML IV SCH ×3 (08:26→23:56)
[2022-10-23] MEDS: FOLIC ACID 1 MG TAB PO SCH (08:27)
[2022-10-23] MEDS: CHOLECALCIFEROL 25 MCG (1000 IU) TABLET PO SCH (08:27)
[2022-10-23] MEDS: LOSARTAN 50 MG TAB PO SCH (08:27)
[2022-10-23] MEDS: FERROUS SULFATE 325 MG TAB PO SCH (08:27)
[2022-10-23] MEDS: ZINC SULFATE 220 MG CAP PO SCH (08:27)
[2022-10-23] MEDS: ONDANSETRON 4 MG/2 ML VIAL IVP PRN (08:35)
[2022-10-23] MEDS ORDERED: NON FORMULARY DRUG (Vitamin B Complex [Vitamin B Complex] 1 EACH Capsule) PO SCH (09:00)
[2022-10-23] MEDS ORDERED: NON FORMULARY DRUG (Ubidecarenone [Co Q-10] 100 MG Capsule) PO SCH (09:00)
[2022-10-23] MEDS: hydroCHLOROthiazide 12.5 MG CAP PO SCH (09:08)
[2022-10-23] MEDS ORDERED: LIDOCAINE 2% INJ 20 MG/ML (2 ML VIAL) ONE (09:50)
[2022-10-23] MEDS ORDERED: PROPOFOL 10 MG/ML 20 ML VIAL IV ONE (09:50)
[2022-10-23] MEDS ORDERED: SUCCINYLCHOLINE CHLORIDE 200 MG/10 ML VIAL IV ONE (09:50)
[2022-10-23] MEDS ORDERED: MIDAZOLAM 2 MG/2 ML VIAL ONE (09:50)
[2022-10-23] MEDS ORDERED: LACTATED RINGERS 1,000 ML IV ONE (09:50)
[2022-10-23] MEDS ORDERED: PHENYLEPHRINE-0.9% NACL SYG 1,000 MCG/10 ML SYRINGE ONE (09:50)
[2022-10-23] MEDS ORDERED: SODIUM CHLORIDE 0.9% 100 ML BAG ONE (09:50)
[2022-10-23] MEDS ORDERED: ceFAZolin 1,000 MG VIAL ONE (09:50)
--- NOTE | 2022-10-23 09:59 | P.GSCN ---
History of Present Illness Consult date: 10/23/22 Reason for Consult: Right UPJ calculus Requesting physician: Nabil Clark History of present illness: The patient is an 82-year-old white female with a history of urolithiasis. She has previously undergone ESWL. She presented to the ER with a 2 day history of right flank pain, which she states was severe. CT scan showed moderate right hydronephrosis due to a 7 x 10 mm right UPJ calculus. Left renal calculi measuring up to 6 mm in size were also seen. Review of Systems - Constitutional Denies chills, Denies fever - Gastrointestinal Reports nausea - Genitourinary Genitourinary: Reports flank pain, Reports kidney stones, Denies dysuria, Denies hematuria Past Medical History Past Medical History: Cancer, GERD/Reflux, Hypertension, Myocardial Infarction ([place]), Thyroid Disorder Additional Past Medical History / Comment(s): positive cologuard, migraines, uterine ca, broken toes, broken knee, hx kidney stones, "heart murmur and 3 leaky valves", thyroid nodules-has had thyroid bx 2 @ [facility], hiatal hernia with shortness of breath, and anemia,covid infections Apr 2022 and September 2019 Last Myocardial Infarction Date:: unknown History of Any Multi-Drug Resistant Organisms: None Reported Past Surgical History: Appendectomy, Hysterectomy, Orthopedic Surgery Additional Past Surgical History / Comment(s): d&c times 2, kidney stone surgery, full hysterectomy and oopherectomy, shoulder rebuilt - RT, foot surgeries for bunions, brad cataract surgery with lens implants,Hiatal hernia repair,ectopic -ovary and tube removed Past Anesthesia/Blood Transfusion Reactions: No Reported Reaction Past Psychological History: No Psychological Hx Reported Smoking Status: Never smoker Past Alcohol Use History: None Reported Past Drug Use History: None Reported - Past Family History Daughter(s) Family Medical History: Cancer Additional Family Medical History / Comment(s): cervical cancer Sister(s) Family Medical History: Cancer, Diabetes Mellitus Additional Family Medical History / Comment(s): thyroidectomy, bowel and liver,bone ca Father Family Medical History: Cancer, Mitral Valve Prolapse (MVP) Additional Family Medical History / Comment(s): bowel cancer, aorta valve replaced. Medications and Allergies Home Medications Medication Instructions Recorded Confirmed Type Irbesartan/Hydrochlorothiazide 1 tab PO DAILY 12/02/15 05/19/23 History [Irbesartan-Hctz 150-12.5 mg Tb] nadoloL [Nadolol] 40 mg PO BID 05/07/15 10/22/22 History Ferrous Sulfate [Feosol] 325 mg PO DAILY 11/21/17 10/22/22 History Montelukast Sodium [Singulair] 10 mg PO HS 11/21/17 10/22/22 History Ubidecarenone [Co Q-10] 200 mg PO DAILY 11/21/17 10/22/22 History Vitamin B Complex 1 cap PO DAILY 11/21/17 10/22/22 History Cholecalciferol [Vitamin D3 (25 50 mcg PO DAILY 08/02/22 10/22/22 History Mcg = 1000 Iu)] Folic Acid 0.8 mg PO DAILY 08/02/22 10/22/22 History Zinc Gluconate [Zinc] 50 mg PO DAILY 08/02/22 10/22/22 History Rosuvastatin [Crestor] 10 mg PO HS 10/22/22 10/22/22 History Allergies Allergy/AdvReac Type Severity Reaction Status Date / Time cephalexin monohydrate Allergy Rash/Hives Verified 10/22/22 16:50 [From Keflex] Iodinated Contrast Media Allergy Anaphylaxis Verified 10/22/22 16:50 [Iodinated Contrast Media - IV Dye] Surgical - Exam Vital Signs Temp Pulse Resp BP Pulse Ox 98 F 75 18 192/97 98 10/22/22 16:46 10/22/22 16:46 10/22/22 16:46 10/22/22 16:46 10/22/22 16:46 - General well developed, well nourished, no distress - Respiratory normal respiratory effort - Abdomen Abdomen: soft, non tender, no guarding, no rigid, no rebound - Psychiatric oriented to time, oriented to person, oriented to place, speech is normal, memory intact Results - Labs 10/22/22 18:30 10/22/22 18:39 Abnormal Lab Results - Last 24 Hours (Table) 10/22/22 10/22/22 Range/Units 18:30 18:39 WBC 12.8 H (3.8-10.6) k/uL MCV 100.6 H (80.0-100.0) fL Neutrophils # 9.9 H (1.3-7.7) k/uL Sodium 136 L (137-145) mmol/L BUN 21 H (7-17) mg/dL Glucose 115 H (74-99) mg/dL AST 42 H (14-36) U/L Diabetes panel 10/22/22 Range/Units 18:39 Sodium 136 L (137-145) mmol/L Potassium 4.9 (3.5-5.1) mmol/L Chloride 103 (98-107) mmol/L Carbon Dioxide 24 (22-30) mmol/L BUN 21 H (7-17) mg/dL Creatinine 0.80 (0.52-1.04) mg/dL Glucose 115 H (74-99) mg/dL Calcium 9.9 (8.4-10.2) mg/dL AST 42 H (14-36) U/L ALT 24 (4-34) U/L Alkaline Phosphatase 70 (38-126) U/L Total Protein 7.4 (6.3-8.2) g/dL Albumin 4.5 (3.5-5.0) g/dL Calcium panel 10/22/22 Range/Units 18:39 Calcium 9.9 (8.4-10.2) mg/dL Albumin 4.5 (3.5-5.0) g/dL Pituitary panel 10/22/22 Range/Units 18:39 Sodium 136 L (137-145) mmol/L Potassium 4.9 (3.5-5.1) mmol/L Chloride 103 (98-107) mmol/L Carbon Dioxide 24 (22-30) mmol/L BUN 21 H (7-17) mg/dL Creatinine 0.80 (0.52-1.04) mg/dL Glucose 115 H (74-99) mg/dL Calcium 9.9 (8.4-10.2) mg/dL Adrenal panel 10/22/22 Range/Units 18:39 Sodium 136 L (137-145) mmol/L Potassium 4.9 (3.5-5.1) mmol/L Chloride 103 (98-107) mmol/L Carbon Dioxide 24 (22-30) mmol/L BUN 21 H (7-17) mg/dL Creatinine 0.80 (0.52-1.04) mg/dL Glucose 115 H (74-99) mg/dL Calcium 9.9 (8.4-10.2) mg/dL Total Bilirubin 0.8 (0.2-1.3) mg/dL AST 42 H (14-36) U/L ALT 24 (4-34) U/L Alkaline Phosphatase 70 (38-126) U/L Total Protein 7.4 (6.3-8.2) g/dL Albumin 4.5 (3.5-5.0) g/dL - Imaging Abdominal x-ray: report reviewed, image reviewed CT scan - abdomen: report reviewed, image reviewed Assessment and Plan Assessment: The patient's right flank pain is due to a 7 x 10 mm right UPJ calculus. The calculus has a very low likelihood of spontaneous passage. (1) Kidney stone on right side Current Visit: Yes Status: Acute Code(s): N20.0 - CALCULUS OF KIDNEY SNOMED Code(s): 36874164 (2) Calculus of ureter Current Visit: Yes Status: Acute Code(s): N20.1 - CALCULUS OF URETER SNOMED Code(s): 66006854 (3) Hydronephrosis with renal and ureteral calculous obstruction Current Visit: Yes Status: Acute Code(s): N13.2 - HYDRONEPHROSIS WITH RENAL AND URETERAL CALCULOUS OBSTRUCTION SNOMED Code(s): 244087856 Plan: I have recommended to Mrs. Denton that she undergo cystoscopy with right ureteral stent insertion. Ureteroscopy will be required if the stent cannot be placed. The rationale for this was discussed, as were potential risks which include anesthesia, bleeding, infection, ureteral injury, and inability to place a stent. With a stent in place, her pain should be improved and I would an ticipate she could be discharged home. Arrangements will be made for her to undergo cystoscopy, right ureteral stent removal, right ureteroscopy with holmium laser lithotripsy and stone basketing in 3-4 weeks. Time with Patient: Greater than 30
--- NOTE | 2022-10-23 10:34 | P.OP ---
Date of Procedure: 10/23/22 Preoperative Diagnosis: Right hydronephrosis secondary to UPJ calculus Postoperative Diagnosis: Same Procedure(s) Performed: Cystoscopy, right ureteral stent insertion Anesthesia: REGINEA Surgeon: Deepak Wagner Estimated Blood Loss (ml): 0 IV fluids (ml): 200 Pathology: none sent Condition: stable Disposition: PACU Indications for Procedure: The patient is an 82-year-old white female with a history of urolithiasis. She has previously undergone ESWL. She presented to the ER with a 2 day history of right flank pain, which she states was severe. CT scan showed moderate right hydronephrosis due to a 7 x 10 mm right UPJ calculus. Left renal calculi chaparrita suring up to 6 mm in size were also seen. She now comes for placement of a right ureteral stent. Operative Findings: Obstructing right UPJ calculus. Successful stent placement. Description of Procedure: The patient was taken to the operating room and placed in the dorsolithotomy position, with legs supported in Chuck stirrups. The external genitalia was prepped and draped sterilely. The 30 lens was used to introduce the 22-Surinamese Stortz cystoscopic sheath through the urethra and into the bladder under direct vision. The bladder was examined in its entirety. Both ureteral orifices were of normal anatomic location and configuration. No tumors or foreign bodies were seen. An angle-tip 0.035 inch Glidewire was passed through the cystoscope. The right ureteral orifice was cannulated, and the Glidewire was slowly advanced up to the calculus. The calculus was impacted, and considerable manipulation of the Glidewire was required to pass it beyond the obstructing calculus and up to the renal pelvis, where it coiled. A 26 cm, 6-Surinamese double-J ureteral stent was placed over the wire. Proper stent positioning was verified fluoroscopically and endoscopically. The bladder was emptied and the cystoscope removed. The patient tolerated the procedure well was taken to the recovery room in stable condition.
--- NOTE | 2022-10-23 10:59 | FL ---
EXAMINATION TYPE: FL guidance operating room DATE OF EXAM: 10/23/2022 CLINICAL HISTORY: Right-sided kidney stone. TECHNIQUE: Fluoroscopy. COMPARISON: Abdominal x-ray same day. FINDINGS: Fluoroscopic guidance was provided during right ureter stent insertion procedure performed by Dr. Wagner. A total of 22.8 seconds of fluoroscopic time was utilized during the procedure and t wo spot images was acquired. Total dose area product (DAP) in uGy*m?, mGy*cm? (or similar: 4.6931. I mages acquired show Advancement of guidewire and portion of proximal ureter stent. IMPRESSION: As Above.
[2022-10-23 14:56] LABS: Appearance,Urine Cloudy (Clear); Bilirubin,Urine Negative (Negative); Blood,Urine Large (Negative); Color,Urine Light Red; Glucose,Urine (UA) Negative (Negative); Ketones,Urine Negative (Negative); Leukocyte Esterase,Urine Large (Negative); Mucus,Urine Few /hpf; Nitrite,Urine Negative (Negative); Protein,Urine 1+ (Negative); RBC,Urine >182 /hpf (0-5); Specific Gravity,Urine 1.018 (1.001-1.035); Squamous Epithelial Cell,Urine 4 /hpf (0-4); Urobilinogen,Urine <2.0 mg/dL (<2.0); WBC,Urine 61 /hpf (0-5)
--- NOTE | 2022-10-23 15:25 | HP ---
HISTORY AND PHYSICAL CHIEF COMPLAINT: Right flank pain and possible UTI. HISTORY OF PRESENT ILLNESS: This 82-year-old woman with a past history of multiple medical problems, presented to [facility]gent Care Clinic with right flank pain. In the Urgent Care Center, UTI was suspected. The patient underwent cystoscopy and ureteral stent placement for right hydronephrosis by Dr. Wagner. The white count is elevated at 12.8. There is no history of fever, rigors, chills. PAST MEDICAL HISTORY: Reviewed and include GERD, hypertension. Rest of the history and rest of the chart also reviewed. HOME MEDICATIONS: Reviewed and include vitamin B complex. Rest of the medications and rest of the doses noted. ALLERGIES: Keflex. Rest of the allergies noted. FAMILY HISTORY: History of diabetes in the family. SOCIAL HISTORY: No history of smoking or alcohol intake. REVIEW OF SYSTEMS: 14-point review is negative except as mentioned earlier. PHYSICAL EXAMINATION: VITAL SIGNS: Pulse 72, blood pressure is 130/62, respirations 16. CHEST: Clear to auscultation. CARDIOVASCULAR: S1, S2. ABDOMEN: Soft, obese, nontender. No mass palpable. NERVOUS SYSTEM: No focal deficits. LEGS: No edema. No swelling. SKIN: No ulcerations. LABORATORY DATA: Reviewed. ASSESSMENT: 1. Right hydronephrosis, status post cystoscopy and ureteral stent. 2. Possible urinary tract infection - acute - present on admission. 3. Hyponatremia. 4. Hypertension. 5. Multiple medical issues. RECOMMENDATION: This is an 82-year-old woman, who presented with multiple complex medical issues. At this time, I recommend to continue the current medications, symptomatic treatment. I recommend UA with micro urine culture, blood culture, and empiric antibiotics. Otherwise, we will repeat the labs tomorrow. Resume the home medications. Guarded prognosis. Further recommendations to follow. MMODL / IJN: [id number] / MTDD
[2022-10-23] MEDS ORDERED: ATORVASTATIN 20 MG TAB PO SCH (21:00)
[2022-10-23] MEDS ORDERED: MONTELUKAST 10 MG TAB PO SCH (21:00)
[2022-10-24] MEDS: SODIUM CHLORIDE 0.9% 1,000 ML IV SCH (06:03)
[2022-10-24] MEDS: ONDANSETRON 4 MG/2 ML VIAL IVP PRN (06:05)
[2022-10-24] MEDS ORDERED: ACETAMINOPHEN TAB 325 MG TAB PO PRN (06:17)
[2022-10-24] MEDS: hydroCHLOROthiazide 12.5 MG CAP PO SCH (08:50)
[2022-10-24] MEDS: ZINC SULFATE 220 MG CAP PO SCH (08:50)
[2022-10-24] MEDS: FOLIC ACID 1 MG TAB PO SCH (08:50)
[2022-10-24] MEDS: FERROUS SULFATE 325 MG TAB PO SCH (08:50)
[2022-10-24] MEDS: CHOLECALCIFEROL 25 MCG (1000 IU) TABLET PO SCH (08:50)
[2022-10-24] MEDS: LOSARTAN 50 MG TAB PO SCH (08:50)
[2022-10-24 08:57] VITALS: BP 145/76; PULSE 63; RESP 16; TEMP 98.3
[2022-10-24 09:17] LABS: HCT 34.9 % (37.2-46.3); HGB 11.2 g/dL (12.0-15.0); MCH 34.6 pg (27.0-32.0); MCHC 32.1 g/dL (32.0-37.0); MCV 107.7 fL (80.0-97.0); Mean Platelet Volume 11.5 fL (9.5-12.2); NRBC Per 100 WBC 0 /100 WBCS (0.0-0.0); Platelet Count 160 X 10*3/uL (140-440); RBC 3.24 X 10*6/uL (4.10-5.20); RDW 11.9 % (11.5-14.5)
[2022-10-24 10:34] LABS: African American GFR (CKD) 97.7 (60.0-200.0); Anion Gap 8.6 mmol/L (10.00-18.00); BUN/Creat Ratio 22.67 Ratio (12.00-20.00); Blood Urea Nitrogen 13.6 mg/dL (9.0-27.0); Carbon Dioxide 25.4 mmol/L (20.0-27.5); Non-African American GFR(CKD) 84.3 (60.0-200.0); Potassium 4.2 mmol/L (3.5-5.5)
--- NOTE | 2022-10-24 14:13 | DS ---
DISCHARGE SUMMARY FINAL DIAGNOSES: 1. Right hydronephrosis, status post cystoscopy and ureteral stent. 2. Urinary tract infection, ruled out. 3. Hyponatremia. 4. Hypertension. 5. Multiple medical issues. DISCHARGE DISPOSITION: The patient will be discharged in stable condition with guarded prognosis. HISTORY OF PRESENT ILLNESS: This is an 82-year-old woman, who was admitted with right hydronephrosis and urolithiasis. Urology performed cystoscopy and ureteral stenting. The patient was evaluated for UTI. Cultures are negative. The abnormal urine is thought to be mainly due to urolithiasis, so no antibiotics were recommended post discharge. PHYSICAL EXAMINATION: VITAL SIGNS: Stable. CARDIOVASCULAR: S1, S2. ABDOMEN: Soft. NERVOUS SYSTEM: No focal deficits. Resume the home medications. Follow up with Dr. Carrillo and Dr. Connors as recommended. In case of any urinary symptoms, recommend repeat urine outpatient. MMODL / IJN: [id number] /
[2022-10-24 14:17] LABS: Basophils # (A) 0.02 X 10*3/uL (0.00-0.10); Basophils % (A) 0.2 %; Eosinophils # (A) 0.13 X 10*3/uL (0.04-0.35); Eosinophils % (A) 1.6 %; Immature Grans, Automated 0.4 %; Lymphocytes # (A) 1.53 X 10*3/uL (0.90-5.00); Lymphocytes % (A) 18.9 %; Monocytes # (A) 0.47 X 10*3/uL (0.20-1.00); Monocytes % (A) 5.8 %; Neutrophils # (A) 5.92 X 10*3/uL (1.80-7.70); Neutrophils % (A) 73.1 %
== END 2022-10-24 10:18 | disposition home or self-care (01) ==
LOC: EC 16:29 → 6NMEDSUR 23:03
PROVIDERS: ADMIT Internal Medicine; ATTEND Internal Medicine
DX: N13.2 Hydronephrosis with renal and ureteral calculous obstruction (principal); E87.1 Hypo-osmolality and hyponatremia; I10 Essential (primary) hypertension; E78.5 Hyperlipidemia, unspecified; K21.9 Gastro-esophageal reflux disease without esophagitis; E04.2 Nontoxic multinodular goiter; D64.9 Anemia, unspecified; G43.909 Migraine, unspecified, not intractable, without status migrainosus; K57.90 Diverticulosis of intestine, part unspecified, without perforation or abscess without bleeding; D35.01 Benign neoplasm of right adrenal gland; K44.9 Diaphragmatic hernia without obstruction or gangrene; I25.2 Old myocardial infarction; Z79.899 Other long term (current) drug therapy; Z88.1 Allergy status to other antibiotic agents; Z91.041 Radiographic dye allergy status; Z87.442 Personal history of urinary calculi; Z85.42 Personal history of malignant neoplasm of other parts of uterus; Z86.16 Personal history of COVID-19; Z90.710 Acquired absence of both cervix and uterus; Z98.42 Cataract extraction status, left eye; Z98.41 Cataract extraction status, right eye; Z96.1 Presence of intraocular lens; Z87.59 Personal history of other complications of pregnancy, childbirth and the puerperium; Z90.79 Acquired absence of other genital organ(s); Z90.721 Acquired absence of ovaries, unilateral; Z98.890 Other specified postprocedural states; Z80.49 Family history of malignant neoplasm of other genital organs; Z83.3 Family history of diabetes mellitus; Z83.49 Family history of other endocrine, nutritional and metabolic diseases; Z80.0 Family history of malignant neoplasm of digestive organs; Z80.8 Family history of malignant neoplasm of other organs or systems; Z82.49 Family history of ischemic heart disease and other diseases of the circulatory system
CPT/HCPCS: 52332; 96376; 96375; 96361; 96372; 96374; 99285; 36415; 80053; 80048; 82550; 83605; 84484; 85025 ×2; 81001; 87040; 87086; 74018; 74176; G0378 ×3; C1769; C1758; J2250; J0330; J2405 ×2; J0690; J0696 ×2; J1885; J2370; J2704; J1170; J2001

== ENCOUNTER 2022-10-26 18:33 | Emergency (ER) | payer MEDICARE, BC ==
[2022-10-26 18:38] VITALS: TEMP 98.8
--- NOTE | 2022-10-26 21:34 | ED ---
General Adult HPI - General Chief complaint: Urogenital Stated complaint: Recheck Time Seen by Provider: 10/26/22 21:33 Source: patient, RN notes reviewed Mode of arrival: ambulatory Limitations: no limitations - History of Present Illness Initial comments: Patient is an 82-year-old female presenting with chief complaint of inability to urinate. Patient had stent placed with Dr. Wagner 3 days ago. She states that since then she's been unable to urinate. She admits to suprapubic pressure. She has not coming procedure with Dr. Wagner on . No fever, chills, nausea, vomiting, chest pain, difficulty breathing, hematuria. - Related Data Home Medications Medication Instructions Recorded Confirmed Irbesartan/Hydrochlorothiazide 1 tab PO DAILY 05/07/15 10/27/22 [Irbesartan-Hctz 150-12.5 mg Tb] nadoloL [Nadolol] 40 mg PO BID 05/07/15 10/27/22 Ferrous Sulfate [Iron (65 MG 325 mg PO DAILY 11/21/17 10/27/22 Elemental)] Montelukast Sodium [Singulair] 10 mg PO HS 11/21/17 10/27/22 Ubidecarenone [Co Q-10] 200 mg PO DAILY 11/21/17 10/27/22 Vitamin B Complex 1 cap PO DAILY 11/21/17 10/27/22 Cholecalciferol [Vitamin D3 (25 50 mcg PO DAILY 08/02/22 10/27/22 Mcg = 1000 Iu)] Folic Acid 0.8 mg PO DAILY 08/02/22 10/27/22 Zinc Gluconate [Zinc] 50 mg PO DAILY 08/02/22 10/27/22 Rosuvastatin [Crestor] 10 mg PO HS 10/22/22 10/27/22 Vitamin C (Unknown Dose) 1 tab PO DAILY 10/27/22 10/27/22 Allergies Allergy/AdvReac Type Severity Reaction Status Date / Time cephalexin monohydrate Allergy Rash/Hives Verified 10/27/22 13:26 [From Keflex] Iodinated Contrast Media Allergy Anaphylaxis Verified 10/27/22 13:26 [Iodinated Contrast Media - IV Dye] Review of Systems ROS Statement: Those systems with pertinent positive or pertinent negative responses have been documented in the HPI. ROS Other: All systems not noted in ROS Statement are negative. Past Medical History Past Medical History: Cancer, GERD/Reflux, Hypertension, Myocardial Infarction ([place]), Thyroid Disorder Additional Past Medical History / Comment(s): positive cologuard, migraines, uterine ca, broken toes, broken knee, hx kidney stones, "heart murmur and 3 leaky valves", thyroid nodules-has had thyroid bx 2 @ [facility], hiatal hernia with shortness of breath, and anemia,covid infections Apr 2022 and September 2019 Last Myocardial Infarction Date:: unknown History of Any Multi-Drug Resistant Organisms: None Reported Past Surgical History: Appendectomy, Hysterectomy, Orthopedic Surgery Additional Past Surgical History / Comment(s): d&c times 2, kidney stone surgery, full hysterectomy and oopherectomy, shoulder rebuilt - RT, foot s urgeries for bunions, brad cataract surgery with lens implants,Hiatal hernia repair,ectopic -ovary and tube removed Past Anesthesia/Blood Transfusion Reactions: No Reported Reaction Past Psychological History: No Psychological Hx Reported Smoking Status: Never smoker Past Alcohol Use History: None Reported Past Drug Use History: None Reported - Past Family History Daughter(s) Family Medical History: Cancer Additional Family Medical History / Comment(s): cervical cancer Sister(s) Family Medical History: Cancer, Diabetes Mellitus Additional Family Medical History / Comment(s): thyroidectomy, bowel and liver,bone ca Father Family Medical History: Cancer, Mitral Valve Prolapse (MVP) Additional Family Medical History / Comment(s): bowel cancer, aorta valve replaced. General Exam - General Exam Comments Initial Comments: Visual Physical Exam Vital signs reviewed General: Well-appearing, nontoxic, no acute distress. Head: Normocephalic, atraumatic Eyes: PERRLA, EOMI ENT: Airway patent Chest: Nonlabored breathing Skin: No visual rash, normal skin tone Neuro: Alert and oriented 3 Musculoskeletal: No gross abnormalities Limitations: no limitations General appearance: alert, in no apparent distress Head exam: Present: atraumatic, normocephalic, normal inspection Eye exam: Present: normal appearance, EOMI. Absent: scleral icterus, periorbital swelling Neck exam: Present: normal inspection, full ROM Respiratory exam: Present: normal lung sounds bilaterally. Absent: respiratory distress, wheezes, rales, rhonchi, stridor Cardiovascular Exam: Present: regular rate, normal rhythm, normal heart sounds. Absent: systolic murmur, diastolic murmur, rubs, gallop, clicks GI/Abdominal exam: Present: soft, tenderness. Absent: distended, guarding, rebound, rigid Neurological exam: Present: alert, oriented X3, CN II-XII intact Psychiatric exam: Present: normal affect, normal mood Skin exam: Present: warm, dry, intact, normal color. Absent: rash Course Vital Signs 10/26/22 10/27/22 18:35 00:42 Temperature 98.8 F Pulse Rate 78 73 Respiratory 16 18 Rate Blood Pressure 195/91 167/85 O2 Sat by Pulse 98 99 Oximetry Medical Decision Making - Medical Decision Making Was pt. sent in by a medical professional or institution (, VAL, FORENSIC ENGINEER, urgent care, hospital, or care home...) When possible be specific @ -No Did you speak to anyone other than the patient for history (EMS, parent, family, police, friend...)? What history was obtained from this source @ -No Did you review nursing and triage notes (agree or disagree)? Why? @ -I reviewed and agree with nursing and triage notes Were old charts reviewed (outside hosp., previous admission, EMS record, old EKG, old radiological studies, urgent care reports/EKG's, care home records)? Report findings @ -No old charts were reviewed Differential Diagnosis (chest pain, altered mental status, abdominal pain women, abdominal pain men, vaginal bleeding, weakness, fever, dyspnea, syncope, headache, dizziness, GI bleed, back pain, seizure, CVA, palpatations, mental health, musculoskeletal)? @ -not applicable EKG interpreted by me (3pts min.). @ -As above X-rays interpreted by me (1pt min.). @ -None done CT interpreted by me (1pt min.). @ -None done U/S interpreted by me (1pt. min.). @ -None done What testing was considered but not performed or refused? (CT, X-rays, U/S, labs)? Why? @ -None What meds were considered but not given or refused? Why? @ -None Did you discuss the management of the patient with other professionals (professionals i.e. , VAL, FORENSIC ENGINEER, lab, RT, psych nurse, neonatal social worker, hearing aid repairer, teacher, president and chief commercial officer, case work aide)? Give summary @ -No Was smoking cessation discussed for >3mins.? @ -No Was critical care preformed (if so, how long)? @ -No Were there social determinants of health that impacted care today? How? (Homelessness, low income, unemployed, alcoholism, drug addiction, transportation, low edu. Level, literacy, decrease access to med. care, custodial, rehab)? @ -No Was there de-escalation of care discussed even if they declined (Discuss DNR or withdrawal of care, Hospice)? DNR status @ -No What co-morbidities impacted this encounter? (DM, HTN, Smoking, COPD, CAD, Ca ncer, CVA, ARF, Chemo, Hep., AIDS, mental health diagnosis, sleep apnea, morbid obesity)? @ -None Was patient admitted / discharged? Hospital course, mention meds given and route, prescriptions, significant lab abnormalities, going to OR and other pertinent info. @ -Patient is an 82-year-old female presenting with chief complaint of inabili ty to urinate. She has not been able to urinate since she had her stent placed by her urologist 3 days ago. Bladder scan shows volume greater than 365 mL. Mata catheter is placed and patient is adequately draining. Urine is positive for blood, sent for culture. Patient is instructed to follow-up with her urologist at scheduled appointment. Follow-up with PCP. Report back to ER with any new or worsening symptoms. Discussed return parameters and answered all questions. Patient conveyed verbal understanding and agreed to the plan. I discussed this case in detail with my attending Dr. Yu Undiagnosed new problem with uncertain prognosis? @ -No Drug Therapy requiring intensive monitoring for toxicity (Heparin, Nitro, Insulin, Cardizem)? @ -No Were any procedures done? @ -No Diagnosis/symptom? @ -Urinary retention Acute, or Chronic, or Acute on Chronic? @ -Acute Uncomplicated (without systemic symptoms) or Complicated (systemic symptoms)? @ -Uncomplicated Side effects of treatment? @ -No Exacerbation, Progression, or Severe Exacerbation? @ -No Poses a threat to life or bodily function? How? (Chest pain, [place], [place], pneumonia, PE, COPD, DKA, ARF, appy, cholecystitis, CVA, Diverticulitis, Homicidal, Suicidal, threat to staff... and all critical care pts) @ -No - Lab Data Lab Results 10/26/22 Range/Units 23:50 Urine Color Yellow Urine Appearance Cloudy H (Clear) Urine pH 7.5 (5.0-8.0) Ur Specific [place] 1.015 (1.001-1.035) Urine Protein 1+ H (Negative) Urine Glucose (UA) Negative (Negative) Urine Ketones Negative (Negative) Urine Blood Large H (Negative) Urine Nitrite Negative (Negative) Urine Bilirubin Negative (Negative) Urine Urobilinogen <2.0 (<2.0) mg/dL Ur Leukocyte Esterase Moderate H (Negative) Urine RBC >182 H (0-5) /hpf Urine WBC 9 H (0-5) /hpf Disposition Clinical Impression: Urinary retention Disposition: HOME SELF-CARE Condition: Good Instructions (If sedation given, give patient instructions): Acute Urinary Retention in Women (ED) Additional Instructions: Follow-up with PCP and urologist at scheduled appointment. Report back to ER if any new or worsening symptoms. Is patient prescribed a controlled substance at d/c from ED?: No Referrals: Renetta Carrillo MD [Primary Care Provider] - 1-2 days Deepak Wagner MD [Family Provider] - 10/28/22 Time of Disposition: 00:37
[2022-10-27 00:26] LABS: Appearance,Urine Cloudy (Clear); Bilirubin,Urine Negative (Negative); Blood,Urine Large (Negative); Color,Urine Yellow; Glucose,Urine (UA) Negative (Negative); Ketones,Urine Negative (Negative); Leukocyte Esterase,Urine Moderate (Negative); Nitrite,Urine Negative (Negative); PH, Urine 7.5 (5.0-8.0); Protein,Urine 1+ (Negative); RBC,Urine >182 /hpf (0-5); Specific Gravity,Urine 1.015 (1.001-1.035); Urobilinogen,Urine <2.0 mg/dL (<2.0); WBC,Urine 9 /hpf (0-5)
[2022-10-27 00:42] VITALS: BP 167/85; PULSE 73; RESP 18
== END 2022-10-27 00:52 | disposition home or self-care (01) ==
LOC: EC 18:33
DX: R33.9 Retention of urine, unspecified (principal); I10 Essential (primary) hypertension; I25.2 Old myocardial infarction; Z88.1 Allergy status to other antibiotic agents; Z90.49 Acquired absence of other specified parts of digestive tract; Z90.721 Acquired absence of ovaries, unilateral; Z90.710 Acquired absence of both cervix and uterus; Z91.041 Radiographic dye allergy status; Z86.16 Personal history of COVID-19
CPT/HCPCS: 51702; 81001; 99284

== ENCOUNTER 2022-10-28 09:21 | Day surgery (SDC) | payer MEDICARE, BC ==
[2022-10-27 13:38] VITALS: BMI 27.3
--- NOTE | 2022-10-27 21:54 | P.GSHP ---
History of Present Illness H&P Date: 10/27/22 Chief Complaint: Right renal colic The patient is an 82-year-old white female with a history of urolithiasis. She has previously undergone ESWL. She presented to the ER with a 2 day history of right flank pain, which she states was severe. CT scan showed moderate right hydronephrosis due to a 7 x 10 mm right UPJ calculus. Left renal calculi measuring up to 6 mm in size were also seen. She underwent right ureteral stent insertion on 10/23/2022. On October 26, she experienced inability to void and underwent Vernon catheter placement. She now comes for ureteroscopic removal of her UPJ calculus. - Constitutional Constitutional: Denies chills, Denies fever - Gastrointestinal Gastrointestinal: Reports nausea - Genitourinary (Female) Genitourinary: Reports as per HPI Past Medical History Past Medical History: Cancer, GERD/Reflux, Hypertension, Myocardial Infarction (DC), Thyroid Disorder Additional Past Medical History / Comment(s): Current kidney stones, has vernon catheter in place. Hx positive cologuard, migraines, uterine cancer, broken toes, broken knee, hx kidney stones, "heart murmur and 3 leaky valves", thyroid nodules-has had thyroid biopsy X2, hiatal hernia with shortness of breath, anemia, hx Covid Apr 2022 and September 2019. Last Myocardial Infarction Date:: unknown History of Any Multi-Drug Resistant Organisms: None Reported Past Surgical History: Appendectomy, Hysterectomy, Orthopedic Surgery Additional Past Surgical History / Comment(s): D&C X2, kidney stone surgery, full hysterectomy and oopherectomy, right shoulder rebuilt, foot surgeries for bunions, bilateral cataract surgery with lens implants, Hiatal hernia repair, ectopic -ovary and tube removed, colonoscopy, right ureteral stent placement. Past Anesthesia/Blood Transfusion Reactions: No Reported Reaction Past Psychological History: No Psychological Hx Reported Smoking Status: Never smoker Past Alcohol Use History: None Reported Past Drug Use History: None Reported - Past Family History Daughter(s) Family Medical History: Cancer Additional Family Medical History / Comment(s): Cervical cancer. Sister(s) Family Medical History: Cancer, Diabetes Mellitus Additional Family Medical History / Comment(s): Thyroidectomy, bowel and liver, bone cancer. Father Family Medical History: Cancer, Mitral Valve Prolapse (MVP) Additional Family Medical History / Comment(s): Bowel cancer, aorta valve replaced. Medications and Allergies Home Medications Medication Instructions Recorded Confirmed Type Irbesartan/Hydrochlorothiazide 1 tab PO DAILY 05/07/15 10/27/22 History [Irbesartan-Hctz 150-12.5 mg Tb] nadoloL [Nadolol] 40 mg PO BID 05/07/15 10/27/22 History Ferrous Sulfate [Iron (65 MG 325 mg PO DAILY 11/21/17 10/27/22 History Elemental)] Montelukast Sodium [Singulair] 10 mg PO HS 11/21/17 10/27/22 History Ubidecarenone [Co Q-10] 200 mg PO DAILY 11/21/17 10/27/22 History Vitamin B Complex 1 cap PO DAILY 11/21/17 10/27/22 History Cholecalciferol [Vitamin D3 (25 50 mcg PO DAILY 08/02/22 10/27/22 History Mcg = 1000 Iu)] Folic Acid 0.8 mg PO DAILY 08/02/22 10/27/22 History Zinc Gluconate [Zinc] 50 mg PO DAILY 08/02/22 10/27/22 History Rosuvastatin [Crestor] 10 mg PO HS 10/22/22 10/27/22 History Vitamin C (Unknown Dose) 1 tab PO DAILY 10/27/22 10/27/22 History Allergies Allergy/AdvReac Type Severity Reaction Status Date / Time cephalexin monohydrate Allergy Rash/Hives Verified 10/27/22 13:26 [From Keflex] Iodinated Contrast Media Allergy Anaphylaxis Verified 10/27/22 13:26 [Iodinated Contrast Media - IV Dye] Surgical - Exam - General well developed, well nourished, no distress - Respiratory normal respiratory effort - Abdomen Abdomen: soft, non tender, no guarding, no rigid, no rebound - Genitourinary normal external genitalia - Psychiatric oriented to time, oriented to person, oriented to place, speech is normal, memory intact Results - Imaging Abdominal x-ray: report reviewed, image reviewed CT scan - abdomen: report reviewed, image reviewed Assessment and Plan (1) Calculus of ureter Status: Acute Code(s): N20.1 - CALCULUS OF URETER SNOMED Code(s): 53946664 Plan: Cystoscopy, right ureteroscopy with holmium laser lithotripsy and stone basketing. The calculus can be removed completely, consideration will be given to removal of the right ureteral stent. However, the stone is large and dense, and in view of this a secondary procedure may be required. The patient as were potential risks, which include anesthesia, bleeding, infection, and ureteral injury.
--- NOTE | 2022-10-28 09:43 | XR ---
EXAMINATION TYPE: XR KUB DATE OF EXAM: 10/28/2022 Comparison: 10/23/2022 Clinical History: 82-year-old female preop right-sided Kidney stone Findings: Right-sided ureteral stent in place. Numerous pelvic phleboliths. There is an oval 1.6 x 0.7 cm calci fication along the proximal third right ureteral stent. This appears more proximal in position compar ed to the recent 10/23/2022 prior. Degenerated dextro convex scoliosis lumbar spine. Nonobstructive harshad wel gas pattern. Scattered mild to moderate stool. Impression: Right-sided ureteral stent. There is a 1.6 x 0.7 cm calcification along the proximal third aspect of the stent, slightly higher in position than the 10/23/2022 study.
[2022-10-28 09:53] VITALS: TEMP 97
[2022-10-28] MEDS ORDERED: LACTATED RINGERS 1,000 ML IV ONE ×2 (09:56→13:07)
[2022-10-28] MEDS ORDERED: ONDANSETRON 4 MG/2 ML VIAL ONE (09:57)
[2022-10-28] MEDS ORDERED: DEXAMETHASONE SOD PHOSPHATE 4 MG/ML 1 ML VIAL IVP ONE (10:06)
[2022-10-28] MEDS ORDERED: PROPOFOL 10 MG/ML 20 ML VIAL IV ONE (11:30)
[2022-10-28] MEDS ORDERED: fentaNYL (PF) 50 MCG/ML 2 ML AMP ONE (11:30)
[2022-10-28] MEDS ORDERED: LIDOCAINE 2% INJ 20 MG/ML (2 ML VIAL) ONE (11:30)
[2022-10-28] MEDS ORDERED: MIDAZOLAM 2 MG/2 ML VIAL ONE (11:30)
[2022-10-28] MEDS ORDERED: SUCCINYLCHOLINE CHLORIDE 200 MG/10 ML VIAL IV ONE (11:30)
[2022-10-28] MEDS ORDERED: ePHEDrine 50 MG/ML 1 ML VIAL ONE (11:30)
--- NOTE | 2022-10-28 13:35 | P.OP ---
Date of Procedure: 10/28/22 Preoperative Diagnosis: Right ureteral calculus Postoperative Diagnosis: Same Procedure(s) Performed: Cystoscopy, right ureteral stent removal, right ureteroscopy with Holmium laser lithotripsy and stone basketing Anesthesia: BRAXTON Surgeon: Deepak Wagner Estimated Blood Loss (ml): 10 IV fluids (ml): 900 Pathology: other (Calculus fragments, sent for chemical analysis) Condition: stable Disposition: PACU Indications for Procedure: The patient is an 82-year-old white female with a history of urolithiasis. She has previously undergone ESWL. She presented to the ER with a 2 day history of right flank pain, which she states was severe. CT scan showed moderate right hydronephrosis due to a 7 x 10 mm right UPJ calculus. Left renal calculi measuring up to 6 mm in size were also seen. She underwent right ureteral stent insertion on 10/23/2022. On October 26, she experienced inability to void and underwent Mata catheter placement. She now comes for ureteroscopic removal of her UPJ calculus. Operative Findings: 7x14 mm right proximal ureteral calculus, fragmented and removed completely. Description of Procedure: The patient was taken to the operating room and placed in the dorsolithotomy position, with legs supported in Chuck stirrups. The external genitalia was prepped and draped sterilely. The 30 lens was used to introduce the 21-[place] Whyte cystoscopic sheath through the urethra and into the bladder under direct vision. The bladder was examined in its entirety. No abnormalities were seen. Grasping forceps were used to grasp the distal end of the right ureteral stent, which was removed along with the cystoscope. The Whyte semirigid ureteroscope was advanced into the bladder, and the right ureteral orifice was cannulated. The ureteroscope was slowly advanced under d irect vision, up to the calculus. The 272 micron Holmium laser probe was passed through the ureteroscope, and lithotripsy was performed. After fragmenting the calculus, calculus fragments were removed using a 0 tip basket. Final inspection of the ureter showed no residual calculus fragments exceeding 1-2 mm, and no evidence of ureteral trauma. The ureteroscope was removed, and the Mata catheter was used to drain the bladder. Calculus fragments were saved and sent for chemical analysis. The patient tolerated the procedure well and was taken to the recovery room in stable condition. Message BusS Report: Procedure Acuity: Semi-Urgent Stone Size and Location: 7 x 14 mm, right proximal ureter Ureteral Dilation: No Ureteral Access Sheath Used: No Stone Sent for Analysis: Yes All Stones/Fragments Were Removed with a Basket: Yes Complications: No Preoperative Antibiotics Given: Yes Stent Placed: No Discharge Medications:
--- NOTE | 2022-10-28 14:30 | FL ---
Intraoperative/procedural fluoroscopic services were provided. Total fluoroscopy time is 10 seconds w ith a total of 2 submitted images to PACS. Please see the operative/procedural note for further detai ls. DAP: 0.1
[2022-10-28 15:02] VITALS: BP 166/79; PULSE 72; RESP 16
== END 2022-10-28 15:50 | disposition home or self-care (01) ==
LOC: OR 09:21
PROVIDERS: ATTEND Urology
DX: N20.1 Calculus of ureter (principal); K21.9 Gastro-esophageal reflux disease without esophagitis; I10 Essential (primary) hypertension; I25.2 Old myocardial infarction; E07.9 Disorder of thyroid, unspecified; Z90.710 Acquired absence of both cervix and uterus; Z90.49 Acquired absence of other specified parts of digestive tract; Z98.890 Other specified postprocedural states; Z86.16 Personal history of COVID-19; Z98.41 Cataract extraction status, right eye; Z98.42 Cataract extraction status, left eye; Z83.3 Family history of diabetes mellitus; Z82.49 Family history of ischemic heart disease and other diseases of the circulatory system; Z79.899 Other long term (current) drug therapy; Z88.1 Allergy status to other antibiotic agents; Z91.041 Radiographic dye allergy status
CPT/HCPCS: 82365; 74018; 52353; C1769; J2250; J0330; J1100; J0690; J2405; J3010; J2704; J2001

== ENCOUNTER → 2022-11-27 | Outpatient (CLI) | payer MEDICARE, BC ==
--- NOTE | 2022-12-02 09:30 | MR ---
EXAMINATION TYPE: MR liver wo/w con and mrcp DATE OF EXAM: 11/27/2022 10:55 AM CLINICAL INDICATION:Female, 82 years old with history of R16.0 HEPATOMEGALY, NOT ELSEWHERE CLASSIFIED ; Hepatomegaly, Evaluate for liver mass right lobe, Hx uterine cancer COMPARISON: CT abdomen 10/22/2022, CT 01/17/2013. TECHNIQUE MRI ABDOMEN WITH CONTRAST: Multiplanar multi-sequence imaging was performed without and wit h IV contrast/gadolinium. The patient was given gadolinium intravenously and dynamic post-VIBE (volu metric interpolated breath-hold gradient recall echo) imaging was performed. IV Contrast: 6.5 cc Gadavist TECHNIQUE MRCP ABDOMEN WITHOUT CONTRAST: Multi planar, T2-weighted imaging with and without fat satur ation and chemical shift imaging was performed of the abdomen. Then, heavily T2 weighted imaging (gopal f-Fourier acquisition single-shot turbo spin-echo) was utilized in order to study the biliary system. Maximum intensity projection images were reconstructed from the original data of the biliary tree. COMPARISON: No prior studies are available for comparison at [facility]. FINDINGS: MRCP: Mild intrahepatic central biliary dilation.. The common bile duct at the level of the pancreat ic head measures 11 mm in size. The common hepatic duct measures 8 mm in size. The pancreatic duct i s normal. The gallbladder appears to have layering debris within the head. Wall thickening suggestive of adenom yomatosis series 701 image 35.. Filling defect within the distal common bile duct series 301 image 17 measuring 6 mm. LOWER CHEST: No gross irregularity. ABDOMEN Liver: Left hepatic lobe high T2 signal complex cystic lesion measuring up to 2.3 x 2.7 x 2.2 cm. No abnormal postcontrast enhancement. Mildly increased in size from 2013. Diffuse signal dropout on chemical shift in phase imaging. Pancreas: Subtle pancreatic tail 6 mm high T2 signal focus. No abnormal postcontrast enhancement. Spleen: Unremarkable. Adrenal glands: Unremarkable. Kidneys: Parapelvic cysts on the left with some cortical simple appearing renal cysts. Stomach and Bowel: Moderate hiatal hernia. No evidence for bowel obstruction. Peritoneum: No evidence of pneumoperitoneum or free fluid. Vasculature: Unremarkable. No aortic aneurysm. Musculoskeletal: The osseous structures appear intact. Lymph Nodes: No gross evidence for lymphadenopathy. Abdominal wall: Unremarkable. IMPRESSION: 1. Cystic structure in the left hepatic lobe without abnormal postcontrast enhancement could represe nt cluster of cysts versus biliary cystadenoma and other etiologies could also be considered. Attenti on on follow-up imaging consider CT for surveillance. This has slowly increased in size from 2013. 2. There is filling defect within the common bile duct near the ampulla measuring 6 mm which could r epresent biliary debris versus mass. Consider ERCP for further evaluation. 3. 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 4. 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 Follow-up in one year for stability is recommended with MRI MRCP. 5. Iron deposition within the liver. 6. Simple appearing renal cysts. 7. Moderate hiatal hernia.
== END | disposition home or self-care (01) ==
LOC: RADMRIMAIN 09:40
PROVIDERS: ATTEND Internal Medicine
DX: N28.1 Cyst of kidney, acquired (principal); K44.9 Diaphragmatic hernia without obstruction or gangrene; R16.0 Hepatomegaly, not elsewhere classified
CPT/HCPCS: 74183; A9585

== ENCOUNTER → 2022-12-06 | Outpatient (CLI) | payer MEDICARE, BC ==
--- NOTE | 2022-12-06 14:15 | US ---
EXAMINATION TYPE: US kidneys/renal and bladder DATE OF EXAM: 12/06/2022 COMPARISON: NONE CLINICAL INDICATION: Female, 82 years old with history of N13.2 CALC OBSTRUCTION; HISTORY OF RENAL ST ONES EXAM MEASUREMENTS: Right Kidney: 10.7X4.7X5.2 cm Left Kidney: 11.1X5.4X4.3 cm Right Kidney: Heterogenous appearance, hydro vs. extrarenal pelvis Left Kidney: Heterogenous appearance, minimal hydro noted Bladder: wnl Bilateral Jets seen: Yes No nephrolithiasis is seen. No masses are identified. The urinary bladder is anechoic. Bilateral u reteral jets are seen. Urinary bladder is sonolucent. Posterior wall is normal. IMPRESSION: 1. There may be some extrarenal pelves. Minimal hydronephrosis however may be present.
== END | disposition home or self-care (01) ==
LOC: RADUSWWP 13:26
PROVIDERS: ATTEND Urology
DX: N13.2 Hydronephrosis with renal and ureteral calculous obstruction (principal)
CPT/HCPCS: 76770

== ENCOUNTER 2023-04-30 14:44 | Emergency (ER) | payer MEDICARE, BC ==
[2023-04-30 14:58] VITALS: RESP 18
--- NOTE | 2023-04-30 15:02 | ED ---
Fall HPI - General Chief Complaint: Fall Stated Complaint: Fall Time Seen by Provider: 04/30/23 14:50 Source: patient, EMS, RN notes reviewed Mode of arrival: EMS - History of Present Illness Initial Comments: Patient is an 83-year-old female presented ER via EMS with chief complaint of a fall. Patient states she was walking in her garden and rolled her ankle and fell hitting her head. Patient denies loss of consciousness, nausea vomiting, blood thinner use. Patient also endorses left knee pain. - Related Data Home Medications Medication Instructions Recorded Confirmed Irbesartan/Hydrochlorothiazide 1 tab PO DAILY 05/07/15 10/27/22 [Irbesartan-Hctz 150-12.5 mg Tb] nadoloL [Nadolol] 40 mg PO BID 05/07/15 10/27/22 Ferrous Sulfate [Iron (65 MG 325 mg PO DAILY 11/21/17 10/27/22 Elemental)] Montelukast Sodium [Singulair] 10 mg PO HS 11/21/17 10/27/22 Ubidecarenone [Co Q-10] 200 mg PO DAILY 11/21/17 10/27/22 Vitamin B Complex 1 cap PO DAILY 11/21/17 10/27/22 Cholecalciferol [Vitamin D3 (25 50 mcg PO DAILY 08/02/22 10/27/22 Mcg = 1000 Iu)] Folic Acid 0.8 mg PO DAILY 08/02/22 10/27/22 Zinc Gluconate [Zinc] 50 mg PO DAILY 08/02/22 10/27/22 Rosuvastatin [Crestor] 10 mg PO HS 10/22/22 10/27/22 Vitamin C (Unknown Dose) 1 tab PO DAILY 10/27/22 10/27/22 Allergies Allergy/AdvReac Type Severity Reaction Status Date / Time cephalexin monohydrate Allergy Rash/Hives Verified 10/28/22 09:49 [From Keflex] Iodinated Contrast Media Allergy Anaphylaxis Verified 10/28/22 09:49 [Iodinated Contrast Media - IV Dye] Review of Systems ROS Statement: Those systems with pertinent positive or pertinent negative responses have been documented in the HPI. ROS Other: All systems not noted in ROS Statement are negative. Past Medical History Past Medical History: Cancer, GERD/Reflux, Hypertension, Myocardial Infarction (SC), Thyroid Disorder Additional Past Medical History / Comment(s): Current kidney stones, has vernon catheter in place. Hx positive cologuard, migraines, uterine cancer, broken toes, broken knee, hx kidney stones, "heart murmur and 3 leaky valves", thyroid nodules-has had thyroid biopsy X2, hiatal hernia with shortness of breath, anemia, hx Covid Apr 2022 and September 2019. Last Myocardial Infarction Date:: unknown History of Any Multi-Drug Resistant Organisms: None Reported Past Surgical History: Appendectomy, Hysterectomy, Orthopedic Surgery Additional Past Surgical History / Comment(s): D&C X2, kidney stone surgery, full hysterectomy and oopherectomy, right shoulder rebuilt, foot surgeries for bunions, bilateral cataract surgery with lens implants, Hiatal hernia repair, ectopic -ovary and tube removed, colonoscopy, right ureteral stent placement. Past Anesthesia/Blood Transfusion Reactions: No Reported Reaction Past Psychological History: No Psychological Hx Reported Smoking Status: Never smoker Past Alcohol Use History: None Reported Past Drug Use History: None Reported - Past Family History Daughter(s) Family Medical History: Cancer Additional Family Medical History / Comment(s): cervical cancer Sister(s) Family Medical History: Cancer, Diabetes Mellitus Additional Family Medical History / Comment(s): thyroidectomy, bowel and liver,bone ca Father Family Medical History: Cancer, Mitral Valve Prolapse (MVP) Additional Family Medical History / Comment(s): bowel cancer, aorta valve replaced. General Exam Limitations: no limitations General appearance: alert, in no apparent distress Head exam: Present: atraumatic, normocephalic, normal inspection Eye exam: Present: normal appearance, PERRL, EOMI. Absent: scleral icterus, conjunctival injection, periorbital swelling Pupils: Present: normal accommodation ENT exam: Present: normal exam, mucous membranes moist, TM's normal bilaterally, normal external ear exam (left ear erythema) Neck exam: Present: normal inspection. Absent: tenderness, meningismus, lymphadenopathy Respiratory exam: Present: normal lung sounds bilaterally. Absent: respiratory distress, wheezes, rales, rhonchi, stridor Cardiovascular Exam: Present: regular rate, normal rhythm, normal heart sounds. Absent: systolic murmur, diastolic murmur, rubs, gallop, clicks Extremities exam: Present: normal inspection, normal capillary refill, other (patient cannot flex left knee. 2+ bilateral DP pulse. mild ecchymosis and edema present). Absent: tenderness, pedal edema, joint swelling, calf tenderness Neurological exam: Present: alert, oriented X3, CN II-XII intact Psychiatric exam: Present: normal affect, normal mood Skin exam: Present: warm, dry, intact, normal color. Absent: rash Course Vital Signs 04/30/23 14:45 Temperature 98.0 F Pulse Rate 68 Respiratory 18 Rate Blood Pressure 166/96 O2 Sat by Pulse 97 Oximetry Medical Decision Making - Medical Decision Making Was pt. sent in by a medical professional or institution (, PA, [employer]CHITECT, urgent care, hospital, or retirement...) When possible be specific @ -No Did you speak to anyone other than the patient for history (EMS, parent, family, police, friend...)? What history was obtained from this source @ -EMS Did you review nursing and triage notes (agree or disagree)? Why? @ -I reviewed and agree with nursing and triage notes Were old charts reviewed (outside hosp., previous admission, EMS record, old EKG, old radiological studies, urgent care reports/EKG's, retirement records)? Report findings @ -No old charts were reviewed Differential Diagnosis (chest pain, altered mental status, abdominal pain women, abdominal pain men, vaginal bleeding, weakness, fever, dyspnea, syncope, headache, dizziness, GI bleed, back pain, seizure, CVA, palpatations, mental health, musculoskeletal)? @ -Differential Musculoskeletal: Muscular strain, contusion, ligament sprain, fracture, arthritis, septic arthritis, bursitis, cellulitis, muscle spasm, nerve compression, DVT, arterial occlusion, herpes zoster, electrolyte abnormality, tumor.... This is not meant to be in all inclusive list EKG interpreted by me (3pts min.). @ -None X-rays interpreted by me (1pt min.). @ -Left knee x-ray shows a fracture of inferior pole of patella with a joint effusion. Fracture is minimally displaced. CT interpreted by me (1pt min.). @ -CT brain C-spine was negative for intracranial process. No acute fractures or dislocations are noted of the vertebrae. U/S interpreted by me (1pt. min.). @ -None done What testing was considered but not performed or refused? (CT, X-rays, U/S, labs)? Why? @ -None What meds were considered but not given or refused? Why? @ -I offered pain medication but patient refused. Did you discuss the management of the patient with other professionals (professionals i.e. , PA, [employer]CHITECT, lab, RT, psych nurse, social science analyst, hopper feeder, teacher, network security officer, oil field caser)? Give summary @ -Yes, I discussed this case with Dr. Sal. He advised knee immobilizer and outpatient follow-up. Was smoking cessation discussed for >3mins.? @ -No Was critical care preformed (if so, how long)? @ -No Were there social determinants of health that impacted care today? How? (Homelessness, low income, unemployed, alcoholism, drug addiction, transportation, low edu. Level, literacy, decrease access to med. care, fci, rehab)? @ -No Was there de-escalation of care discussed even if they declined (Discuss DNR or withdrawal of care, Hospice)? DNR status @ -No What co-morbidities impacted this encounter? (DM, HTN, Smoking, COPD, CAD, Cancer, CVA, ARF, Chemo, Hep., AIDS, mental health diagnosis, sleep apnea, morbid obesity)? @ -None Was patient admitted / discharged? Hospital course, mention meds given and route, prescriptions, significant lab abnormalities, going to OR and other pertinent info. @ -Discharge. Upon examination patient's vitals remained stable. There was mild ecchymosis and swelling noted of the left knee. Patient was unable to flex left knee. 2+ dorsalis pedis pulse. CT brain C-spine was negative for intracranial process/mass effect. No acute fractures or dislocations were noted. Left knee x-ray shows a inferior pole fracture of the patella with a joint effusion. Fracture is minimally displaced. Patient will be placed in a knee immobilize prior to discharge. I spoke with Dr. Sal who stated this could be treated outpatient. Patient be discharged in stable condition with follow-up to PCP and orthopedics. Patient expressed understanding and agreement with care plan. Undiagnosed new problem with uncertain prognosis? @ -No Drug Therapy requiring intensive monitoring for toxicity (Heparin, Nitro, Insulin, Cardizem)? @ -No Were any procedures done? @ -No Diagnosis/symptom? @ -Patella fracture Acute, or Chronic, or Acute on Chronic? @ -Acute Uncomplicated (without systemic symptoms) or Complicated (systemic symptoms)? @ -Uncomplicated Side effects of treatment? @ -No Exacerbation, Progression, or Severe Exacerbation? @ -No Poses a threat to life or bodily function? How? (Chest pain, USA, SC, pneumonia, PE, COPD, DKA, ARF, appy, cholecystitis, CVA, Diverticulitis, Homicidal, Suicidal, threat to staff... and all critical care pts) @ -No - Radiology Data Radiology results: report reviewed, image reviewed Disposition Clinical Impression: Patella fracture Disposition: HOME SELF-CARE Condition: Stable Instructions (If sedation given, give patient instructions): Patellar Fracture (ED) Additional Instructions: Please return to the Emergency Department if symptoms worsen or any other concerns. Is patient prescribed a controlled substance at d/c from ED?: No Referrals: Renetta Carrillo MD [Primary Care Provider] - 1-2 days Tonny Sal MD [STAFF PHYSICIAN] - 1-2 days Time of Disposition: 16:19
[2023-04-30 15:24] VITALS: TEMP 98
--- NOTE | 2023-04-30 15:34 | CT ---
EXAMINATION TYPE: CT brain bensonine wo con DATE OF EXAM: 04/30/2023 COMPARISON: None HISTORY: PAIN AFTER FALL CT DLP: 1303.1 mGycm Automated exposure control for dose reduction was used. TECHNIQUE: CT scan of the head and cervical spine are performed without contrast. FINDINGS: There is no acute intracranial hemorrhage, mass effect, or midline shift identified. The ventricles and sulci are within normal limits in size. The globes are intact and the visualized sinuses are cl ear. Cervical spine is visualized in its entirety from C1 through upper thoracic levels and demonstrates s atisfactory alignment without evidence of acute fracture or dislocation. Prevertebral soft tissue ap pears within normal limits. The C1-C2 articulation is unremarkable. IMPRESSION: 1. There is no acute fracture or dislocation evident in the cervical spine. Moderate degenerative dis ease at C5-6 and mild degenerative disease at C6-7. 2. No acute intracranial hemorrhage, mass effect, or midline shift is seen.
--- NOTE | 2023-04-30 15:43 | XR ---
Left knee. HISTORY: Pain following fall. COMPARISON: None. TECHNIQUE: 3 views left knee were obtained FINDINGS: There is a minimally displaced fracture of the inferior pole of patella. There is a dense moderate to large joint effusion. The remaining osseous structures are intact. There is mild narrowing of the medial compartment the kn ee consistent with mild osteoarthritic change. IMPRESSION: Fracture of the patella with joint effusion as described above.
[2023-04-30 17:05] VITALS: BP 162/90; PULSE 56
== END 2023-04-30 17:10 | disposition home or self-care (01) ==
LOC: EC 14:44
DX: S82.092A Other fracture of left patella, initial encounter for closed fracture (principal); L53.9 Erythematous condition, unspecified; E11.36 Type 2 diabetes mellitus with diabetic cataract; I10 Essential (primary) hypertension; I25.2 Old myocardial infarction; Z79.899 Other long term (current) drug therapy; Z91.041 Radiographic dye allergy status; Z88.1 Allergy status to other antibiotic agents; Z86.16 Personal history of COVID-19; W18.30XA Fall on same level, unspecified, initial encounter; Y93.01 Activity, walking, marching and hiking; Y92.007 Garden or yard of unspecified non-institutional (private) residence as the place of occurrence of the external cause
CPT/HCPCS: 73562; 72125; 70450; 99285; L1830

== ENCOUNTER 2023-07-02 15:14 | Inpatient (IN) | payer MEDICARE, BC ==
--- NOTE | 2023-07-02 15:36 | ED ---
General Adult HPI - General Chief complaint: Abdominal Pain Stated complaint: Kidney stones Time Seen by Provider: 07/02/23 15:16 Source: patient Mode of arrival: ambulatory Limitations: no limitations - History of Present Illness Initial comments: Patient presents to the ED for evaluation with her [id number] and granddaughter at bedside. Patient states that she has had left flank/side pain since about 5 PM yesterday, and she is concerned that she is passing a kidney stone. Patient states that she has a history of kidney stones. Patient admits to feeling nauseated as well. Patient denies fever or chills, trauma or injury, headache, chest pain or pressure, dyspnea, cough or cold symptoms, palpitations, dizziness, vomiting, diarrhea or constipation, bloody or melanotic stool, dysuria/hematuria/urinary frequency/urinary symptoms, leg roxane n/numbness/weakness, incontinence, urinary retention, or any other symptoms or complaints. - Related Data Home Medications Medication Instructions Recorded Confirmed Irbesartan/Hydrochlorothiazide 1 tab PO DAILY 05/07/15 10/27/22 [Irbesartan-Hctz 150-12.5 mg Tb] nadoloL [Nadolol] 40 mg PO BID 05/07/15 10/27/22 Ferrous Sulfate [Iron (65 MG 325 mg PO DAILY 11/21/17 10/27/22 Elemental)] Montelukast Sodium [Singulair] 10 mg PO HS 11/21/17 10/27/22 Ubidecarenone [Co Q-10] 200 mg PO DAILY 11/21/17 10/27/22 Vitamin B Complex 1 cap PO DAILY 11/21/17 10/27/22 Cholecalciferol [Vitamin D3 (25 50 mcg PO DAILY 08/02/22 10/27/22 Mcg = 1000 Iu)] Folic Acid 0.8 mg PO DAILY 08/02/22 10/27/22 Zinc Gluconate [Zinc] 50 mg PO DAILY 08/02/22 10/27/22 Rosuvastatin [Crestor] 10 mg PO HS 10/22/22 10/27/22 Vitamin C (Unknown Dose) 1 tab PO DAILY 10/27/22 10/27/22 Allergies Allergy/AdvReac Type Severity Reaction Status Date / Time cephalexin monohydrate Allergy Rash/Hives Verified 07/02/23 15:20 [From Keflex] Iodinated Contrast Media Allergy Anaphylaxis Verified 07/02/23 15:20 [Iodinated Contrast Media - IV Dye] Review of Systems ROS Statement: Those systems with pertinent positive or pertinent negative responses have been documented in the HPI. ROS Other: All systems not noted in ROS Statement are negative. Past Medical History Past Medical History: Cancer, GERD/Reflux, Hypertension, Myocardial Infarction ([place]), Thyroid Disorder Additional Past Medical History / Comment(s): Current kidney stones, has vernon catheter in place. Hx positive cologuard, migraines, uterine cancer, broken toes, broken knee, hx kidney stones, "heart murmur and 3 leaky valves", thyroid nodules-has had thyroid biopsy X2, hiatal hernia with shortness of breath, anemi a, hx Covid Apr 2022 and September 2019. Last Myocardial Infarction Date:: unknown History of Any Multi-Drug Resistant Organisms: None Reported Past Surgical History: Appendectomy, Hysterectomy, Orthopedic Surgery Additional Past Surgical History / Comment(s): D&C X2, kidney stone surgery, full hysterectomy and oopherectomy, right shoulder rebuilt, foot surgeries for bunions, bilateral cataract surgery with lens implants, Hiatal hernia repair, ectopic -ovary and tube removed, colonoscopy, right ureteral stent placement. knee brace in place for Left knee fx 04/30/2023 Past Anesthesia/Blood Transfusion Reactions: No Reported Reaction Past Psychological History: No Psychological Hx Reported Smoking Status: Never smoker Past Alcohol Use History: None Reported Past Drug Use History: None Reported - Past Family History Daughter(s) Family Medical History: Cancer Additional Family Medical History / Comment(s): cervical cancer Sister(s) Family Medical History: Cancer, Diabetes Mellitus Additional Family Medical History / Comment(s): thyroidectomy, bowel and liver,bone ca Father Family Medical History: Cancer, Mitral Valve Prolapse (MVP) Additional Family Medical History / Comment(s): bowel cancer, aorta valve replaced. General Exam Limitations: no limitations General appearance: alert, in no apparent distress Head exam: Present: normocephalic Eye exam: Present: normal appearance ENT exam: Present: mucous membranes moist Neck exam: Present: other (Trachea is in midline ) Respiratory exam: Present: normal lung sounds bilaterally. Absent: respiratory distress, wheezes, rales, rhonchi, stridor Cardiovascular Exam: Present: regular rate, normal rhythm, normal heart sounds, other (Normal radial pulses bilaterally ) GI/Abdominal exam: Present: soft. Absent: distended, tenderness, guarding Extremities exam: Absent: tenderness, pedal edema, calf tenderness Back exam: Absent: tenderness, CVA tenderness (R), CVA tenderness (L) Neurological exam: Present: alert, oriented X3, other (No evidence of lower extremity neurological deficit or saddle anesthesia on exam ). Absent: motor sensory deficit Psychiatric exam: Present: normal affect Skin exam: Present: warm, dry, normal color Course Vital Signs 07/02/23 07/02/23 07/02/23 15:16 17:51 19:48 Temperature 98.5 F 97.6 F Pulse Rate 78 63 60 Respiratory 16 18 16 Rate Blood Pressure 174/90 155/88 155/75 O2 Sat by Pulse 97 94 L 96 Oximetry - Reevaluation(s) Reevaluation #1: 07/02/23 20:04 Case, H&P and test results were discussed with Dr. Barragan (urology). He accepts hospital admission. He asks to keep the patient NPO after midnight. He has no further recommendations at this time. 07/02/23 20:14 Patient and family are aware of the patient's test results. Patient states that her pain has improved with ED management, but she states that it is starting to return, and she is requesting more pain medication at this time. Patient and family agree with hospital admission at this time. Medical Decision Making - Medical Decision Making Was pt. sent in by a medical professional or institution (, PA, SUPERVISOR [employer], urgent care, hospital, or residential...) When possible be specific @ -No Did you speak to anyone other than the patient for history (EMS, parent, family, police, friend...)? What history was obtained from this source @ -No Did you review nursing and triage notes (agree or disagree)? Why? @ -I reviewed and agree with nursing and triage notes Were old charts reviewed (outside hosp., previous admission, EMS record, old EKG, old radiological studies, urgent care reports/EKG's, residential records)? Report findings @ -No old charts were reviewed Differential Diagnosis (chest pain, altered mental status, abdominal pain women, abdominal pain men, vaginal bleeding, weakness, fever, dyspnea, syncope, headache, dizziness, GI bleed, back pain, seizure, CVA, palpatations, mental health, musculoskeletal)? @ -Differential Abdominal Pain Women: Diverticulitis, diverticulosis, ischemic bowel, pancreatitis, hepatitis, UTI, gastroenteritis, AAA, incarcerated hernia, bowel obstruction, constipation, inflammatory bowel, peptic ulcer disease, splenic infarction, kidney stone, this is not meant to be an all-inclusive list EKG interpreted by me (3pts min.). @ -None done X-rays interpreted by me (1pt min.). @ -None done CT interpreted by me (1pt min.). @ -Noncontrast CT abdomen/pelvis demonstrates an obstructing proximal left ureteral stone. I agree with the radiologist's interpretation as above. U/S interpreted by me (1pt. min.). @ -None done What testing was considered but not performed or refused? (CT, X-rays, U/S, labs)? Why? @ -None What meds were considered but not given or refused? Why? @ -None Did you discuss the management of the patient with other professionals (professionals i.e. , PA, [employer], lab, RT, psych nurse, director social, specialist field engineer, teacher, hydrographical technical officer, immigration case worker)? Give summary @ -As above.] Was smoking cessation discussed for >3mins.? @ -No Was critical care preformed (if so, how long)? @ -No Were there social determinants of health that impacted care today? How? (Homelessness, low income, unemployed, alcoholism, drug addiction, transportation, low edu. Level, literacy, decrease access to med. care, detention, rehab)? @ -No Was there de-escalation of care discussed even if they declined (Discuss DNR or withdrawal of care, Hospice)? DNR status @ -No What co-morbidities impacted this encounter? (DM, HTN, Smoking, COPD, CAD, Cancer, CVA, ARF, Chemo, Hep., AIDS, mental health diagnosis, sleep apnea, morbid obesity)? @ -None Was patient admitted / discharged? Hospital course, mention meds given and route , prescriptions, significant lab abnormalities, going to OR and other pertinent info. @ -Patient has a history of renal stones. Patient presents to the ED complaining of having left flank pain and nausea. CT demonstrates an obstructing proximal left ureteral stone. Patient's symptoms have been managed with IV analgesics and IV antiemetics in the ED. Urology was consulted from the ED, and Dr. Barragan has accepted hospital admission. Undiagnosed new problem with uncertain prognosis? @ -No Drug Therapy requiring intensive monitoring for toxicity (Heparin, Nitro, Insulin, Cardizem)? @ -No Were any procedures done? @ -No Diagnosis/symptom? @ -Left ureterolithiasis Acute, or Chronic, or Acute on Chronic? @ -Acute Uncomplicated (without systemic symptoms) or Complicated (systemic symptoms)? @ -Default Side effects of treatment? @ -No Exacerbation, Progression, or Severe Exacerbation? @ -No Poses a threat to life or bodily function? How? (Chest pain, USA, CT, pneumonia, PE, COPD, DKA, ARF, appy, cholecystitis, CVA, Diverticulitis, Homicidal, Suicidal, threat to staff... and all critical care pts) @ -No - Lab Data Result diagrams: 07/02/23 16:04 07/02/23 16:04 Lab Results 07/02/23 07/02/23 Range/Units 16:04 16:04 WBC 11.6 H (3.8-10.6) k/uL RBC 3.97 (3.80-5.40) m/uL Hgb 13.8 (11.4-16.0) gm/dL Hct 40.2 (34.0-46.0) % MCV 101.1 H (80.0-100.0) fL MCH 34.7 (25.0-35.0) pg MCHC 34.3 (31.0-37.0) g/dL RDW 11.6 (11.5-15.5) % Plt Count 202 (150-450) k/uL MPV 8.7 Neutrophils % 77 % Lymphocytes % 15 % Monocytes % 4 % Eosinophils % 3 % Basophils % 0 % Neutrophils # 9.0 H (1.3-7.7) k/uL Lymphocytes # 1.8 (1.0-4.8) k/uL Monocytes # 0.5 (0-1.0) k/uL Eosinophils # 0.3 (0-0.7) k/uL Basophils # 0.0 (0-0.2) k/uL Sodium 138 (137-145) mmol/L Potassium 3.8 (3.5-5.1) mmol/L Chloride 103 (98-107) mmol/L Carbon Dioxide 28 (22-30) mmol/L Anion Gap 7 mmol/L BUN 20 H (7-17) mg/dL Creatinine 1.04 (0.52-1.04) mg/dL Est GFR (CKD-EPI)AfAm 57 (>60 ml/min/1.73 sqM) Est GFR (CKD-EPI)NonAf 50 (>60 ml/min/1.73 sqM) Glucose 104 H (74-99) mg/dL Calcium 10.6 H (8.4-10.2) mg/dL Total Bilirubin 1.0 (0.2-1.3) mg/dL AST 27 (14-36) U/L ALT 21 (4-34) U/L Alkaline Phosphatase 101 (38-126) U/L Total Protein 7.1 (6.3-8.2) g/dL Albumin 4.6 (3.5-5.0) g/dL Lipase 101 (23-300) U/L - Radiology Data Noncontrast CT abdomen/pelvis: 1. Proximal third of the obstructing 0.8 x 1.2 cm left ureteral stone with moderate hydronephrosis. 2. Diverticulosis without acute diverticulitis. 3. Benignappearing low density right adrenal gland. Disposition Clinical Impression: Left ureteral stone Disposition: ADMITTED IP TO THIS HOSP Condition: Stable Is patient prescribed a controlled substance at d/c from ED?: No Time of Disposition: 20:04
[2023-07-02] MEDS ORDERED: ONDANSETRON 4 MG/2 ML VIAL IVP STA ×2 (15:43→20:15)
[2023-07-02] MEDS ORDERED: SODIUM CHLORIDE 0.9% 500 ML 500 ML IV STA (15:43)
[2023-07-02] MEDS ORDERED: HYDROmorphone 1 MG/ML 1 ML SYRINGE IVP STA (15:44)
[2023-07-02 16:31] LABS: Basophils % (A) 0 %; Eosinophils # (A) 0.3 k/uL (0-0.7); Eosinophils % (A) 3 %; HCT 40.2 % (34.0-46.0); HGB 13.8 gm/dL (11.4-16.0); Lymphocytes # (A) 1.8 k/uL (1.0-4.8); Lymphocytes % (A) 15 %; MCH 34.7 pg (25.0-35.0); MCHC 34.3 g/dL (31.0-37.0); MCV 101.1 fL (80.0-100.0); Mean Platelet Volume 8.7; Monocytes # (A) 0.5 k/uL (0-1.0); Monocytes % (A) 4 %; Neutrophils % (A) 77 %; Platelet Count 202 k/uL (150-450); RBC 3.97 m/uL (3.80-5.40); RDW 11.6 % (11.5-15.5); WBC 11.6 k/uL (3.8-10.6)
[2023-07-02 16:48] LABS: ALT 21 U/L (4-34); AST 27 U/L (14-36); African American GFR (CKD) 57 (>60 ml/min/1.73 sqM); Albumin 4.6 g/dL (3.5-5.0); Alkaline Phosphatase 101 U/L (38-126); Anion Gap 7 mmol/L; Blood Urea Nitrogen 20 mg/dL (7-17); Calcium 10.6 mg/dL (8.4-10.2); Carbon Dioxide 28 mmol/L (22-30); Chloride 103 mmol/L (98-107); Glucose 104 mg/dL (74-99); Lipase 101 U/L (23-300); Non-African American GFR(CKD) 50 (>60 ml/min/1.73 sqM); Potassium 3.8 mmol/L (3.5-5.1); Sodium 138 mmol/L (137-145); Total Protein 7.1 g/dL (6.3-8.2)
--- NOTE | 2023-07-02 19:59 | CT ---
EXAMINATION TYPE: CT abdomen pelvis wo con DATE OF EXAM: 07/02/2023 COMPARISON: None INDICATION: left flank pain DLP: 581.9 mGycm, Automated exposure control for dose reduction was used. CONTRAST: 0 mL of Isovue 300. Study performed without Oral Contrast TECHNIQUE: Axial images were obtained from above the diaphragm to the pubic rami in the axial plane a t 5 mm thick sections. Reconstructed images are reviewed on the computer in the coronal plane. FINDINGS: Limited CT sections are obtained the lung bases. The lung bases are clear. There is a moderate size hiatal hernia present CT ABDOMEN: Liver: Hepatic cyst is present. Spleen: Normal Pancreas: Normal Adrenal glands: There is a low density prominent right adrenal gland. Left adrenal gland is unremarka ble. Gallbladder: Normal Kidneys: No masses are evident. No hydronephrosis is present. No cysts are present. There is a mod erate left hydronephrosis. Nonobstructing 0.3 cm calcifications in the posterior left kidney. There i s an obstructing proximal left ureteral stone measuring 0.8 cm x 1.2 cm. Left Periureteral stranding is present. Aorta: Vascular calcification is within the aorta. Inferior vena cava: Normal. CT PELVIS: Loops of bowel within the abdomen and pelvis are normal. The study is without oral contrast. Diverti cular changes are within the sigmoid colon. No stranding is adjacent. Appendix: Not identified. No dilated tubular structure or inflammatory changes evident. Urinary bladder: Normal. Genitourinary structures: Uterus and ovaries are not identified. Osseous structures: No suspicious lytic or sclerotic lesions. Degenerative changes are within the sco liotic lumbar spine. IMPRESSION: 1. Proximal third of the obstructing 0.8 x 1.2 cm left ureteral stone with moderate left hydronephro sis. 2. Diverticulosis without acute diverticulitis. 3. Benign-appearing low density right adrenal gland
[2023-07-02] MEDS ORDERED: ONDANSETRON 4 MG/2 ML VIAL IVP PRN (20:06)
[2023-07-02] MEDS ORDERED: HYDROmorphone 0.5 MG/0.5 ML SYRINGE IVP PRN (20:06)
[2023-07-02] MEDS ORDERED: NALOXONE 0.4 MG/ML 1 ML VIAL IV PRN (20:06)
[2023-07-02] MEDS ORDERED: HYDROmorphone 0.5 MG/0.5 ML SYRINGE IVP STA (20:15)
[2023-07-03 05:22] LABS: Amorphous Sediment,Urine Rare /hpf; Appearance,Urine Clear (Clear); Bilirubin,Urine Negative (Negative); Blood,Urine Large (Negative); Calcium Oxalate Crystals,Urine Occasional /hpf; Color,Urine Yellow; Glucose,Urine (UA) Negative (Negative); Hyaline Casts,Urine 3 /lpf (0-2); Ketones,Urine Negative (Negative); Leukocyte Esterase,Urine Small (Negative); Mucus,Urine Few /hpf; Nitrite,Urine Negative (Negative); PH, Urine 5.5 (5.0-8.0); Protein,Urine Trace (Negative); RBC,Urine >182 /hpf (0-5); Specific Gravity,Urine 1.017 (1.001-1.035); Squamous Epithelial Cell,Urine 2 /hpf (0-4); Urobilinogen,Urine <2.0 mg/dL (<2.0); WBC,Urine 18 /hpf (0-5)
[2023-07-03 10:25] LABS: Basophils # (A) 0.02 X 10*3/uL (0.00-0.10); Basophils % (A) 0.3 %; Eosinophils # (A) 0.05 X 10*3/uL (0.04-0.35); Eosinophils % (A) 0.8 %; HCT 35.3 % (37.2-46.3); HGB 11.5 g/dL (12.0-15.0); Lymphocytes # (A) 1.83 X 10*3/uL (0.90-5.00); Lymphocytes % (A) 28.6 %; MCH 33.8 pg (27.0-32.0); MCHC 32.6 g/dL (32.0-37.0); MCV 103.8 FL (80.0-97.0); Mean Platelet Volume 11.7 FL (9.5-12.2); Monocytes # (A) 0.52 X 10*3/uL (0.20-1.00); Monocytes % (A) 8.1 %; NRBC Per 100 WBC 0 X 10*3/uL (0.00-0.01); Neutrophils # (A) 3.97 X 10*3/uL (1.80-7.70); Platelet Count 144 X 10*3/uL (140-440); RDW 11.9 % (11.5-14.5)
[2023-07-03 10:43] LABS: ALT 14 U/L (8-44); AST 17 U/L (13-35); Albumin 3.8 g/dL (3.8-4.9); Albumin/Globulin Ratio 2.11 Ratio (1.60-3.17); Alkaline Phosphatase 75 U/L (41-126); BUN/Creat Ratio 28.29 Ratio (12.00-20.00); Blood Urea Nitrogen 19.8 mg/dL (9.0-27.0); Calcium 9.6 mg/dL (8.7-10.3); Carbon Dioxide 26.8 mmol/L (21.6-31.8); Chloride 101 mmol/L (96-109); Globulin 1.8 g/dL (1.6-3.3); Glucose 91 mg/dL (70-110); Potassium 4.1 mmol/L (3.5-5.5); Sodium 138 mmol/L (135-145); Total Bilirubin 0.6 mg/dL (0.3-1.2); Total Protein 5.6 g/dL (6.2-8.2)
[2023-07-03] MEDS ORDERED: SODIUM CHLORIDE 0.9% 1,000 ML IV ONE (12:05)
--- NOTE | 2023-07-03 12:26 | P.GSHP ---
History of Present Illness H&P Date: 07/03/23 Chief Complaint: Left ureteral stone This is an 83-year-old female with history of a 1.2 cm left-sided proximal stone. Presented to the hospital with intractable pain associated with nausea and vomiting. Denies any dysuria or gross hematuria. Does have history of kidney stones in the past that required right-sided ureteroscopy with homing laser by Dr. Wagner in October 2022. She denies any fevers or chills. Underwent a CT on presentation that showed an 8 x 12 mm left-sided proximal stone with hydronephrosis. This morning on evaluation she is having persistent pain as sociated with nausea despite IV pain medications. - Constitutional Constitutional: Denies chills, Denies fever, Denies weakness - EENT Ears, nose, mouth and throat: Denies headache, Denies sore throat - Cardiovascular Cardiovascular: Denies chest pain, Denies shortness of breath - Respiratory Respiratory: Denies cough, Denies 7 - Gastrointestinal Gastrointestinal: Reports abdominal pain, Reports nausea, Reports vomiting - Genitourinary (Female) Genitourinary: Reports flank pain, Reports kidney stones, Denies dysuria, Denies hematuria - Genitourinary (Male) Genitourinary: Denies dysuria, Denies hematuria - Musculoskeletal Musculoskeletal: Denies myalgias - Neurological Neurological: Denies numbness, Denies weakness Past Medical History Past Medical History: Cancer, GERD/Reflux, Hypertension, Myocardial Infarction ([place]), Thyroid Disorder Additional Past Medical History / Comment(s): Current kidney stones, has vernon catheter in place. Hx positive cologuard, migraines, uterine cancer, broken toes, broken knee, hx kidney stones, "heart murmur and 3 leaky valves", thyroid nodules-has had thyroid biopsy X2, hiatal hernia with shortness of breath, anemia, hx Covid Apr 2022 and September 2019. Last Myocardial Infarction Date:: unknown History of Any Multi-Drug Resistant Organisms: None Reported Past Surgical History: Appendectomy, Hysterectomy, Orthopedic Surgery Additional Past Surgical History / Comment(s): D&C X2, kidney stone surgery, full hysterectomy and oopherectomy, right shoulder rebuilt, foot surgeries for bunions, bilateral cataract surgery with lens implants, Hiatal hernia repair, ectopic -ovary and tube removed, colonoscopy, right ureteral stent pl acement. knee brace in place for Left knee fx 04/30/2023 Past Anesthesia/Blood Transfusion Reactions: No Reported Reaction Past Psychological History: No Psychological Hx Reported Smoking Status: Never smoker Past Alcohol Use History: None Reported Past Drug Use History: None Reported - Past Family History Daughter(s) Family Medical History: Cancer Additional Family Medical History / Comment(s): cervical cancer Sister(s) Family Medical History: Cancer, Diabetes Mellitus Additional Family Medical History / Comment(s): thyroidectomy, bowel and liver,bone ca Father Family Medical History: Cancer, Mitral Valve Prolapse (MVP) Additional Family Medical History / Comment(s): bowel cancer, aorta valve replaced. Medications and Allergies Home Medications Medication Instructions Recorded Confirmed Type Irbesartan/Hydrochlorothiazide 1 tab PO DAILY@139905/07/15 07/02/23 History [Irbesartan-Hctz 150-12.5 mg Tb] Ferrous Sulfate [Iron (65 MG 325 mg PO DAILY@139911/21/17 07/02/23 History Elemental)] Montelukast Sodium [Singulair] 10 mg PO DAILY@139911/21/17 07/02/23 History Ubidecarenone [Co Q-10] 200 mg PO DAILY@139911/21/17 07/02/23 History Folic Acid 0.8 mg PO DAILY@139908/02/22 07/02/23 History Rosuvastatin [Crestor] 10 mg PO DAILY@139910/22/22 07/02/23 History Ascorbic Acid [Vitamin C] 500 mg PO DAILY@139907/02/23 07/02/23 History Aspirin [Adult Low Dose Aspirin EC] 81 mg PO DAILY@139907/02/23 07/02/23 History Calcium/Magnesium/Vitamin D3 1 tab PO DAILY@139907/02/23 07/02/23 History Cyanocobalamin (Vitamin B-12) 1,000 mcg PO DAILY@139907/02/23 07/02/23 History [Vitamin B-12] Super B-Complex W/Vtiamin C 1 tab PO DAILY@139907/02/23 07/02/23 History Zinc 30mg 30 mg PO DAILY@139907/02/23 07/02/23 History nadoloL 40 mg PO DAILY@139907/02/23 07/02/23 History Allergies Allergy/AdvReac Type Severity Reaction Status Date / Time cephalexin monohydrate Allergy Rash/Hives Verified 07/02/23 20:35 [From Keflex] Iodinated Contrast Media Allergy Anaphylaxis Verified 07/02/23 20:35 [Iodinated Contrast Media - IV Dye] Surgical - Exam Vital Signs Temp Pulse Resp BP Pulse Ox 98.5 F 78 16 174/90 97 07/02/23 15:16 07/02/23 15:16 07/02/23 15:16 07/02/23 15:16 07/02/23 15:16 - General no distress, moderate pain - Eyes normal ocular movement, no pale - ENT normal nares, normal mucosa - Respiratory normal expansion, normal respiratory effort - Abdomen Abdomen: soft, non tender, no distended - Psychiatric oriented to time, oriented to person, oriented to place Results - Labs 07/03/23 04:13 07/03/23 04:13 Abnormal Lab Results - Last 24 Hours (Table) 07/02/23 07/02/23 07/03/23 Range/Units 16:04 16:04 04:13 WBC 11.6 H (3.8-10.6) k/uL RBC 3.40 L (4.10-5.20) X 10*6/uL Hgb 11.5 L (12.0-15.0) g/dL Hct 35.3 L (37.2-46.3) % MCV 101.1 H 103.8 H (80.0-100.0) fL MCH 33.8 H (27.0-32.0) pg Neutrophils # 9.0 H (1.3-7.7) k/uL BUN 20 H (7-17) mg/dL BUN/Creatinine Ratio (12.00-20.00) Ratio Glucose 104 H (74-99) mg/dL Calcium 10.6 H (8.4-10.2) mg/dL Total Protein (6.2-8.2) g/dL Urine Protein (Negative) Urine Blood (Negative) Ur Leukocyte Esterase (Negative) Urine RBC (0-5) /hpf Urine WBC (0-5) /hpf Calcium Oxalate Crystal (None) /hpf Amorphous Sediment (None) /hpf Hyaline Casts (0-2) /lpf Urine Mucus (None) /hpf 07/03/23 07/03/23 Range/Units 04:13 04:30 WBC (3.8-10.6) k/uL RBC (4.10-5.20) X 10*6/uL Hgb (12.0-15.0) g/dL Hct (37.2-46.3) % MCV (80.0-100.0) fL MCH (27.0-32.0) pg Neutrophils # (1.3-7.7) k/uL BUN (7-17) mg/dL BUN/Creatinine Ratio 28.29 H (12.00-20.00) Ratio Glucose (74-99) mg/dL Calcium (8.4-10.2) mg/dL Total Protein 5.6 L (6.2-8.2) g/dL Urine Protein Trace H (Negative) Urine Blood Large H (Negative) Ur Leukocyte Esterase Small H (Negative) Urine RBC >182 H (0-5) /hpf Urine WBC 18 H (0-5) /hpf Calcium Oxalate Crystal Occasional H (None) /hpf Amorphous Sediment Rare H (None) /hpf Hyaline Casts 3 H (0-2) /lpf Urine Mucus Few H (None) /hpf Diabetes panel 07/02/23 07/03/23 Range/Units 16:04 04:13 Sodium 138 138 (137-145) mmol/L Potassium 3.8 4.1 (3.5-5.1) mmol/L Chloride 103 101 (98-107) mmol/L Carbon Dioxide 28 26.8 (22-30) mmol/L BUN 20 H 19.8 (7-17) mg/dL Creatinine 1.04 0.7 (0.52-1.04) mg/dL Glucose 104 H 91 (74-99) mg/dL Calcium 10.6 H 9.6 (8.4-10.2) mg/dL AST 27 17 (14-36) U/L ALT 21 14 (4-34) U/L Alkaline Phosphatase 101 75 (38-126) U/L Total Protein 7.1 5.6 L (6.3-8.2) g/dL Albumin 4.6 3.8 (3.5-5.0) g/dL Calcium panel 07/02/23 07/03/23 Range/Units 16:04 04:13 Calcium 10.6 H 9.6 (8.4-10.2) mg/dL Albumin 4.6 3.8 (3.5-5.0) g/dL Pituitary panel 07/02/23 07/03/23 Range/Units 16:04 04:13 Sodium 138 138 (137-145) mmol/L Potassium 3.8 4.1 (3.5-5.1) mmol/L Chloride 103 101 (98-107) mmol/L Carbon Dioxide 28 26.8 (22-30) mmol/L BUN 20 H 19.8 (7-17) mg/dL Creatinine 1.04 0.7 (0.52-1.04) mg/dL Glucose 104 H 91 (74-99) mg/dL Calcium 10.6 H 9.6 (8.4-10.2) mg/dL Adrenal panel 07/02/23 07/03/23 Range/Units 16:04 04:13 Sodium 138 138 (137-145) mmol/L Potassium 3.8 4.1 (3.5-5.1) mmol/L Chloride 103 101 (98-107) mmol/L Carbon Dioxide 28 26.8 (22-30) mmol/L BUN 20 H 19.8 (7-17) mg/dL Creatinine 1.04 0.7 (0.52-1.04) mg/dL Glucose 104 H 91 (74-99) mg/dL Calcium 10.6 H 9.6 (8.4-10.2) mg/dL Total Bilirubin 1.0 0.6 (0.2-1.3) mg/dL AST 27 17 (14-36) U/L ALT 21 14 (4-34) U/L Alkaline Phosphatase 101 75 (38-126) U/L Total Protein 7.1 5.6 L (6.3-8.2) g/dL Albumin 4.6 3.8 (3.5-5.0) g/dL Assessment and Plan Assessment: 83-year-old female with history of a 1.2 cm left-sided proximal stone. Is having intractable pain with nausea and vomiting secondary to the stone. Option of left-sided ureteroscopy with holmium laser was discussed with her. Discussed risk benefit and rationale of surgery in details -Will keep n.p.o. -OR for left-sided ureteroscopy, homing laser lithotripsy, stone basketing and stent insertion
[2023-07-03] MEDS ORDERED: DEXAMETHASONE SOD PHOSPHATE 4 MG/ML 1 ML VIAL IVP ONE (12:39)
[2023-07-03] MEDS ORDERED: ONDANSETRON 4 MG/2 ML VIAL IVP ONE (12:39)
[2023-07-03] MEDS ORDERED: GLYCOPYRROLATE 0.2 MG/ML 2 ML VIAL ONE (12:45)
[2023-07-03] MEDS ORDERED: SUCCINYLCHOLINE CHLORIDE 200 MG/10 ML VIAL IV ONE (12:45)
[2023-07-03] MEDS ORDERED: PROPOFOL 10 MG/ML 20 ML VIAL IV ONE (12:45)
[2023-07-03] MEDS ORDERED: LIDOCAINE 1% INJ 10MG/ML (20 ML MDV) ONE (12:45)
[2023-07-03] MEDS ORDERED: ePHEDrine 50 MG/ML 1 ML VIAL ONE (12:45)
[2023-07-03] MEDS ORDERED: MIDAZOLAM 2 MG/2 ML VIAL ONE (12:45)
[2023-07-03] MEDS ORDERED: fentaNYL (PF) 50 MCG/ML 2 ML AMP ONE (12:45)
[2023-07-03] MEDS ORDERED: GENTAMICIN IV ONE ×2 (13:07)
[2023-07-03] MEDS ORDERED: SODIUM CHLORIDE 0.9% IV ONE ×2 (13:07)
[2023-07-03] MEDS ORDERED: LACTATED RINGERS 1,000 ML IV ONE (13:31)
--- NOTE | 2023-07-03 14:09 | FL ---
Fluoroscopy INDICATION: Post lithotripsy FINDINGS: Fluoroscopy time: 30 seconds. Total dose area product (DAP) in uGy*m?, mGy*cm? (or similar): 3.5385 Images obtained: 3. IMPRESSION: 1. Documentation of fluoroscopy.
--- NOTE | 2023-07-03 14:22 | P.OP ---
Date of Procedure: 07/03/23 Preoperative Diagnosis: Left ureteral stone Postoperative Diagnosis: Same Procedure(s) Performed: Cystoscopy, left ureteroscopy, homing laser lithotripsy, stone basketing and stent insertion Implants: 6 [place] by 24 cm stent in the left ureter Anesthesia: BRAXTON Surgeon: Thierno Barragan Estimated Blood Loss (ml): 5 Pathology: other (left ureteral stone) Condition: stable Disposition: PACU Indications for Procedure: 83-year-old female with history of a 1.2 cm left-sided proximal stone. Is having intractable pain with nausea and vomiting secondary to the stone. Option of left-sided ureteroscopy with holmium laser was discussed with her. Discussed risk benefit and rationale of surgery in details Operative Findings: Large stone at the left proximal ureter edema surrounding the stone Description of Procedure: Patient brought the operating room, general anesthesia was induced. She was prepped and draped in sterile fashion and placed in dorsolithotomy position. Cystoscopy fiited with a 21 [place] sheath was inserted per urethra, cystoscopy was performed which showed no abnormality within the bladder. On fluoroscopy the stone was radiopaque and was seen in the left proximal ureter, It appear to have migrated more distally compared to the location of the CT scan. At this time a semirigid ureteroscope was inserted per urethra and advanced up the left ureteral orifice, I advanced the scope to the level of the stone, at this point the stone was visualized there was a mucosal edema surrounding the stone. Using the holmium laser the stone was dusted. Any sizable fragments were removed using the stone basket. At this time I was able to advance the scope past the area of the stone and into the UPJ which showed no additional stones. Pullback ureteroscopy was performed qhich showed no injury to the ureter or any sizable fragments, on fluoroscopy there was no radiopaque densities visualized. At this time as ureteroscope was withdrawn and a sensor wire was advanced through. Next a ureteral stent was passed over the wire, the proximal curl was visualized on fluoroscopy and the distal curl was visualized using the cystoscope. The bladder was emptied at the end of the case. Patient tolerated procedure well was taken to recovery in stable condition. She will follow-up in 2 weeks for cystoscopy stent removal
[2023-07-03] MEDS ORDERED: LEVOFLOXACIN 500MG-D5W PMX 500 MG in DEXTROSE/WATER 1 100ML.BAG IVPB SCH (15:00)
[2023-07-03] MEDS: SODIUM CHLORIDE 0.9% 1,000 ML IV SCH (17:51)
[2023-07-04] MEDS: SODIUM CHLORIDE 0.9% 1,000 ML IV SCH (01:40)
[2023-07-04 08:42] VITALS: BP 137/75; PULSE 67; RESP 19; TEMP 98.3
--- NOTE | 2023-07-04 08:43 | P.DS ---
Providers Date of admission: 07/02/23 20:06 Attending physician: Thierno Barragan MD Primary care physician: Renetta Carrillo [facility] Course: Patient is admitted 07/02/2023 for an obstructing left ureteral stone. She underwent ureteroscopy laser lithotripsy and stent placement yesterday for this stone. She is feeling much better. She is ready for discharge home. She'll be discharged home care of her family. She'll take Tylenol or Motrin for pain. She'll follow-up with Dr. Piper one week for cystoscopy and stent removal. Her condition is good. Patient Condition at Discharge: Good Plan - Discharge Summary New Discharge Prescriptions: No Action Irbesartan/Hydrochlorothiazide [Irbesartan-Hctz 150-12.5 mg Tb] 1 tab PO DAILY@1400 Ferrous Sulfate [Iron (65 MG Elemental)] 325 mg PO DAILY@1400 Ubidecarenone [Co Q-10] 200 mg PO DAILY@1400 Montelukast Sodium [Singulair] 10 mg PO DAILY@1400 Folic Acid 0.8 mg PO DAILY@1400 Rosuvastatin [Crestor] 10 mg PO DAILY@1400 Super B-Complex W/Vtiamin C 1 tab PO DAILY@1400 nadoloL 40 mg PO DAILY@1400 Ascorbic Acid [Vitamin C] 500 mg PO DAILY@1400 Zinc 30mg 30 mg PO DAILY@1400 Cyanocobalamin (Vitamin B-12) [Vitamin B-12] 1,000 mcg PO DAILY@1400 Calcium/Magnesium/Vitamin D3 1 tab PO DAILY@1400 Aspirin [Adult Low Dose Aspirin EC] 81 mg PO DAILY@1400 Discharge Medication List Irbesartan/Hydrochlorothiazide [Irbesartan-Hctz 150-12.5 mg Tb] 1 tab PO DAILY@1400 05/07/15 [History] Ferrous Sulfate [Iron (65 MG Elemental)] 325 mg PO DAILY@1400 11/21/17 [History] Montelukast Sodium [Singulair] 10 mg PO DAILY@1400 11/21/17 [History] Ubidecarenone [Co Q-10] 200 mg PO DAILY@1400 11/21/17 [History] Folic Acid 0.8 mg PO DAILY@1400 08/02/22 [History] Rosuvastatin [Crestor] 10 mg PO DAILY@1400 10/22/22 [History] Ascorbic Acid [Vitamin C] 500 mg PO DAILY@1400 07/02/23 [History] Aspirin [Adult Low Dose Aspirin EC] 81 mg PO DAILY@139907/02/23 [History] Calcium/Magnesium/Vitamin D3 1 tab PO DAILY@139907/02/23 [History] Cyanocobalamin (Vitamin B-12) [Vitamin B-12] 1,000 mcg PO DAILY@139907/02/23 [History] Super B-Complex W/Vtiamin C 1 tab PO DAILY@139907/02/23 [History] Zinc 30mg 30 mg PO DAILY@139907/02/23 [History] nadoloL 40 mg PO DAILY@139907/02/23 [History] Follow up Appointment(s)/Referral(s): Renetta Carrillo MD [Primary Care Provider] - 1-2 days Thierno Barragan MD [STAFF PHYSICIAN] - 1 Week Discharge Disposition: HOME SELF-CARE
== END 2023-07-04 12:11 | disposition home or self-care (01) | DRG 661 ==
LOC: EC 15:14 → 4SSUR 20:06
PROVIDERS: ADMIT Urology; ATTEND Urology
PROC: 0TC78ZZ Extirpation of Matter from Left Ureter, Via Natural or Artificial Opening Endoscopic (ICD-10-PCS; 2023-07-03)
PROC: 0T778DZ Dilation of Left Ureter with Intraluminal Device, Via Natural or Artificial Opening Endoscopic (ICD-10-PCS; principal; 2023-07-03 12:00)
DX: N13.2 Hydronephrosis with renal and ureteral calculous obstruction (principal); Z79.82 Long term (current) use of aspirin; D64.9 Anemia, unspecified; K21.9 Gastro-esophageal reflux disease without esophagitis; Z79.899 Other long term (current) drug therapy; Z85.42 Personal history of malignant neoplasm of other parts of uterus; Z96.1 Presence of intraocular lens; I10 Essential (primary) hypertension; Z86.16 Personal history of COVID-19; Z90.710 Acquired absence of both cervix and uterus; Z87.442 Personal history of urinary calculi; Z98.41 Cataract extraction status, right eye; Z98.42 Cataract extraction status, left eye; Z87.19 Personal history of other diseases of the digestive system; Z91.041 Radiographic dye allergy status
CPT/HCPCS: 36415; 74176; 80053; 81001; 82365; 83690; 85025; 96374; 96375; 96376; 99285

== ENCOUNTER → 2023-08-24 | Outpatient (CLI) | payer MEDICARE, BC ==
--- NOTE | 2023-08-24 22:37 | BD ---
EXAMINATION TYPE: Axial Bone Density DATE OF EXAM: 08/24/2023 CLINICAL HISTORY: 83 years old Female. ICD-10 CODE: M85.851 OTHER DISORDER OF BONE DE Height: 64 Weight: 159 FRAX RISK QUESTIONS: History of Fracture in Adulthood: yes Secondary Osteoporosis: yes 3. Menopause before 45: yes 38 RISK FACTORS HISTORY OF: Surgery to Spine/Hip(right/left)/Wrist (right/left): no MEDICATIONS: Thyroid Medications: no Osteoporosis Medications: no EXAM MEASUREMENTS: Bone mineral densitometry was performed using the [employer] System. Bone mineral density as measured about the Lumbar spine is: ----- L1-L4(G/cm2): 1.148 T Score Values are as follows: ----- L1: -1.5 ----- L2: -2.1 ----- L3: 0.2 ----- L4: 2.1 ----- L1-L4: -0.3 Z Score Values are as follows: ----- L1: 0.2 ----- L2: -0.4 ----- L3: 1.9 ----- L4: 3.8 ----- L1-L4: 1.4 Bone mineral density has: Increased 4.8% since study of: 06/19/2021 Bone mineral density about the R hip (g/cm2): 0.782 Bone mineral density about the L hip (g/cm2): 0.805 T Score values are as follows: -----R Neck: -2.2 -----L Neck: -1.8 -----R Total: -1.8 -----L Total: -1.6 Z Score values are as follows: -----R Neck: 0.0 -----L Neck: 0.3 -----R Total: 0.3 -----L Total: 0.4 Bone mineral density has: Decreased -4.2% since study of: 06/19/2021 FRAX%s: The graph provided illustrates a 24.3% chance for a major osteoporotic fx and a 7.5% chance f or the hips probability for fx in 10 years time. IMPRESSION: Osteopenia (T Score between -2.5 and -1). There is slightly increased risk of fracture and the patient may be considered for treatment. Re-Screen 2-5 years. NOTE: T-SCORE=SD OF THE YOUNG ADULT MEAN.
--- NOTE | 2023-08-25 08:03 | MM ---
Reason for Exam: Screening (asymptomatic). Last mammogram was performed 1 year(s) and 2 month(s) ago. Patient History: Menarche at age 12. First Full-Term at age 17. Left ovary removed at age 49. Right ovary removed at age 49. Hysterectomy at age 49. Postmenopausal. Patient has history of breast feeding. Endometrial cancer, age 49. Estrogen for 9 years, 7 months, from age 56 until age 65. 06/28/2012, Benign Cyst Aspiration on the left side. Risk Values: Yesica 5 year model risk: 1.0%. NCI Lifetime model risk: 1.1%. Prior Study Comparison: 05/28/2019 Bilateral Screening Mammogram, [facility]. 06/19/2021 Bilateral Screening Mammogram, [facility]. 07/02/2022 Bilateral MG 3D screening mammo w/cad, [facility]. Tissue Density: There are scattered areas of fibroglandular density. Findings: Analyzed By CAD. Right breast: There is no suspicious group of microcalcifications or new suspicious mass. Left breast: There is no suspicious group of microcalcifications or new suspicious mass. There is no suspicious group of microcalcifications or new suspicious mass. Overall Assessment: Negative, BI-RAD 1 Management: Screening Mammogram of both breasts in [address] [facility] will attempt to contact patient to return for supplemental views and ultrasound if indicated. Patient should continue monthly self-breast exams. A clinical breast exam by your physician is recommended on an annual basis. This exam should not preclude additional follow-up of suspicious palpable abnormalities. Note on Yesica scores and lifetime risk: 1. A Yesica score greater than 3% is considered moderate risk. If this is the case, consider specialist referral to assess eligibility for a risk reducing agent. 2. If overall lifetime risk for the development of breast cancer is 20% or higher, the patient may qualify for future screening with alternating mammogram and breast MRI. Electronically signed and approved by: Shayan Bolaños DO
== END | disposition home or self-care (01) ==
LOC: RADMAMWWP 11:46
PROVIDERS: ATTEND Internal Medicine
DX: Z12.31 Encounter for screening mammogram for malignant neoplasm of breast (principal); M85.89 Other specified disorders of bone density and structure, multiple sites; Z78.0 Asymptomatic menopausal state
CPT/HCPCS: 77063; 77067; 77080

== ENCOUNTER → 2023-08-29 | Outpatient (CLI) | payer MEDICARE, BC ==
--- NOTE | 2023-08-29 23:30 | US ---
EXAMINATION TYPE: US carotid duplex BILAT DATE OF EXAM: 08/29/2023 COMPARISON: NONE CLINICAL INDICATION: Female, 83 years old with history of I65.23 CAROTID STENOSIS; stenosis TECHNIQUE: Carotid duplex ultrasound examination. Indirect Doppler criteria was utilized. FINDINGS: EXAM MEASUREMENTS: RIGHT: Peak Systolic Velocity (PSV) cm/sec ----- Right CCA: 72.6 ----- Right ICA: 85.6 ----- Right ECA: 56.5 ICA/CCA ratio: 1.2 RIGHT: End Diastole cm/sec ----- Right CCA: 21.7 ----- Right ICA: 34.7 ----- Right ECA: 7.1 LEFT: Peak Systolic Velocity (PSV) cm/sec ----- Left CCA: 78.4 ----- Left ICA: 74 ----- Left ECA: 63.8 ICA/CCA ratio: 0.9 LEFT: End Diastole cm/sec ----- Left CCA: 26 ----- Left ICA: 31.8 ----- Left ECA: 5.7 VERTEBRALS (direction of flow): Right Vertebral: Antegrade Left Vertebral: Antegrade Rhythm: Normal TOASTER OPERATOR NOTES: No significant stenosis seen IMPRESSION: Mild right Atheromatous plaquing present without significant flow-limiting stenosis. Criteria for Assigning % of Stenosis / Diameter reduction (Estimation based on the indirect measurements of the internal carotid artery velocities (ICA PSV). 1. Normal (no stenosis)=ICA PSV < 125 cm/s: ratio < 2.0: ICA EDV<40 cm/s. 2. Less than 50% stenosis=ICA PSV < 125 cm/s: ratio < 2.0: ICA EDV<40 cm/s. 3. 50 to 69% stenosis=ICA PSV of 125 to 230 cm/s: ration 2.0 ? 4.0: ICA EDV 40-100 cm/s. 4. Greater than 70% stenosis to near occlusion= ICA PSV > 230 cm/s: ratio > 4.0: ICA EDV > 100 cm/s. 5. Near occlusion= ICA PSV velocities may be low or undetectable: variable ratio and ICA EDV. 6. Total occlusion=unable to detect flow.
--- NOTE | 2023-08-30 18:18 | CA ---
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 18 - 58 / 22 - 52 cm??? LA Volume Index 28.4 cm???/m??? 16 - 28 cm???/m??? M-MODE Aortic Root Diameter MM 3.3 cm LA Systolic Diameter MM 4.6 cm LA Ao Ratio MM 1.4 AV Cusp Separation MM 2.0 cm DOPPLER AV Peak Velocity 106.6 cm/s AV Peak Gradient 4.5 mmHg AV Mean Velocity 69.1 cm/s AV Mean Gradient 2.2 mmHg AV Velocity Time Integral 19.7 cm LVOT Peak Velocity 87.2 cm/s LVOT Peak Gradient 3.0 mmHg LVOT Velocity Time Integral 17.9 cm MV Area PHT 2.3 cm??? Mitral E Point Velocity 52.0 cm/s Mitral A Point Velocity 99.5 cm/s Mitral E to A Ratio 0.5 MV Deceleration Time 325.1 ms MV E' Velocity 3.6 cm/s Mitral E to MV E' Ratio 14.3 TR Peak Velocity 264.7 cm/s TR Peak Gradient 28.0 mmHg Right Ventricular Systolic Press 31.7 mmHg FINDINGS Left Ventricle Mildly increased left ventricular wall thickness. Left ventricular cavity size normal. Normal left ventricular systolic function with no obvious regional wall motion abnormalities. Left ventricular ejection fraction is estimated at 55-60 %. Right Ventricle Normal right ventricular size and function. Right ventricular systolic pressure within normal limits. Right Atrium Normal right atrial size. Left Atrium Normal left atrial size. Mitral Valve Structurally normal mitral valve. Mitral valve thickened. Mild mitral annular calcification. Mild to moderate mitral regurgitation. Aortic Valve No aortic valve stenosis or regurgitation.aortic valve sclerosis. Tricuspid Valve Structurally normal tricuspid valve. Mild tricuspid regurgitation. Pulmonic Valve Structurally normal pulmonic valve. Trace pulmonic regurgitation. Pericardium No pericardial effusion. Aorta Normal size aortic root and proximal ascending aorta. CONCLUSIONS 1. Normal left ventricle size and systolic function 2. Mild to moderate mitral with mild tricuspid regurgitation and no evidence of pulmonary hypertension. Previewed by: Dr. Ruben Yates MD (Electronically Signed) Final Date: 30 August 2023 18:18
== END | disposition home or self-care (01) ==
LOC: RADECHMAIN 15:56
PROVIDERS: ATTEND Internal Medicine
DX: I36.1 Nonrheumatic tricuspid (valve) insufficiency (principal); I34.0 Nonrheumatic mitral (valve) insufficiency; I65.23 Occlusion and stenosis of bilateral carotid arteries
CPT/HCPCS: 93306; 93880

== ENCOUNTER → 2023-08-31 | Outpatient (CLI) | payer MEDICARE, BC ==
--- NOTE | 2023-08-31 21:56 | US ---
EXAMINATION TYPE: US kidneys/renal and bladder DATE OF EXAM: 08/31/2023 COMPARISON: US 2022, CT 2023 CLINICAL INDICATION: Female, 83 years old with history of N13.2 HYDRONEPHROSIS WITH RENAL AND URETERA L CALCU; EXAM MEASUREMENTS: Right Kidney: 11.7 x 4.8 x 4.6 cm Left Kidney: 11.7 x 5.0 x 5.0 cm Right Kidney: cortical thinning, 1.6cm extrarenal pelvis, inferior pole limited by overlying bowel ga s Left Kidney: cortical thinning, mild hydronephrosis Bladder: not fully distended, appears wnl as seen Bilateral Jets seen: yes Findings appears stable from the comparison of 12/06/2022 IMPRESSION: 1. Cortical thinning is present bilaterally which can be related to some renal failure. 2. Mild left hydronephrosis. Extra renal pelvis is present on the right.
== END | disposition home or self-care (01) ==
LOC: RADUSWWP 09:55
PROVIDERS: ATTEND Urology
DX: N13.2 Hydronephrosis with renal and ureteral calculous obstruction (principal); N28.89 Other specified disorders of kidney and ureter
CPT/HCPCS: 76770

== ENCOUNTER → 2023-10-04 | Outpatient (CLI) | payer MEDICARE, BC ==
--- NOTE | 2023-10-04 11:59 | XR ---
EXAMINATION TYPE: XR KUB DATE OF EXAM: 10/04/2023 11:45 AM CLINICAL INDICATION:Female, 83 years old with history of N13.2 HYDRONEPHROSIS; COMPARISON: 10/28/2022.. TECHNIQUE: One radiographic view of the abdomen was obtained. FINDINGS: The bowel gas pattern is nonspecific without dilated loops of small or large bowel. There i s no evidence for organomegaly or pneumoperitoneum. The osseous structures are intact. No abnormal calcifications are present, Bowel gas limits evaluation. Fecal material and gas are demonstrated thro ughout the colon and rectum. IMPRESSION: Right renal calculus seen on prior is not well visualized may be surgically removed. Right ureteral s tent is no longer visualized. No left-sided renal calculi definitively visualized. Nonspecific bowel gas pattern without radiographic evidence for acute process.
== END | disposition home or self-care (01) ==
LOC: RADXRMAIN 10:17
PROVIDERS: ATTEND Urology
DX: N13.2 Hydronephrosis with renal and ureteral calculous obstruction (principal)
CPT/HCPCS: 74018

== ENCOUNTER → 2023-10-04 | Outpatient (CLI) | payer MEDICARE, BC ==
--- NOTE | 2023-10-05 09:39 | US ---
EXAMINATION TYPE: US kidneys/renal and bladder DATE OF EXAM: 10/04/2023 COMPARISON: NONE CLINICAL INDICATION: Female, 83 years old with history of N13.2 HYDRONEPHROSIS; Follow up from 2023 EXAM MEASUREMENTS: Right Kidney: 12.3 x 5.0 x 4.5 cm Left Kidney: 12.1 x 5.8 x 5.9 cm Post Void Residual Volume: NA mL Right Kidney: wnl Left Kidney: Prominent renal pyramid versus peripelvic cyst lower pole Bladder: WNL Bilateral Jets seen: Yes Normal Post Void Residual: NA IMPRESSION: 1. No acute renal abnormality. 2. Peripelvic cyst or prominent renal pyramid inferior pole left kidney
== END | disposition home or self-care (01) ==
LOC: RADUSWWP 10:12
PROVIDERS: ATTEND Urology
DX: N13.2 Hydronephrosis with renal and ureteral calculous obstruction (principal); N28.1 Cyst of kidney, acquired
CPT/HCPCS: 76770

== ENCOUNTER → 2023-12-15 | Outpatient (CLI) | payer MEDICARE, BC ==
--- NOTE | 2023-12-15 11:25 | XR ---
Lumbar spine HISTORY: Lower extremity Radiculopathy for one week and occasional back pain. COMPARISON: None. TECHNIQUE: 3 views of the lumbar spine were obtained FINDINGS: There is mild dextroscoliosis of lumbar spine. The lumbar vertebral segments are normal in height and alignment and there is no fracture or subluxat ion. There is mild disc space narrowing and spondylosis at the L3-4 level. There is moderate to marke d disc space narrowing and spondylosis at the L4-5 and L5-S1 levels. The visualized sacrum and SI joints are normal. IMPRESSION: 1. No lumbar disc herniation or malalignment. 2. Mild dextroscoliosis. 3. Multilevel degenerative disc disease, mild at L3-4 and moderate to marked at L4-5 and L5-S1 levels .
== END | disposition home or self-care (01) ==
LOC: RADXRMAIN 10:46
PROVIDERS: ATTEND Internal Medicine
DX: M79.2 Neuralgia and neuritis, unspecified (principal); M51.37 Other intervertebral disc degeneration, lumbosacral region
CPT/HCPCS: 72100

== ENCOUNTER → 2024-01-12 | Outpatient (CLI) | payer MEDICARE, BC ==
--- NOTE | 2024-02-02 14:42 | MR ---
Site ID synapse default Patient Annabelle Denton A ID [id number] Age/Gender: 83Y, F Order # N/A Procedure MR lumbar w/o con Date 01/12/2024 7:20:27 AM EXAMINATION TYPE: MR lumbar spine wo con DATE OF EXAM: 01/26/2024 COMPARISON: Lumbar spine radiograph 12/15/2023, CT abdomen and pelvis 07/02/2023 HISTORY: Low back pain, numbness in both feet TECHNIQUE: Multiplanar, multisequence images of the lumbar spine were acquired without IV contrast. FINDINGS: The lumbar vertebral bodies do have preserved heights. Dextrocurvature of the lumbar spine with apex at L3. Straightening of the normal lumbar lordosis. Multilevel disc desiccation is present . No spondylolisthesis. Diffuse heterogenous bone marrow signal. Benign sacral Tarlov cysts. The conu s medullaris and the distal spinal cord do appear unremarkable with regards to their signal intensity and morphology. Degenerative changes of both SI joints. L1-L2: Minimal eccentric left paracentral disc bulge without significant central canal stenosis. Gumaro ateral facet arthropathy. No significant neural foraminal stenosis. L2-L3: Broad-based disc bulge with ligamentum flavum buckling and bilateral facet arthropathy result s in minimal central canal stenosis. No significant neural foraminal stenosis. L3-L4: Broad-based disc bulge with ligamentum flavum buckling and bilateral facet arthropathy result s in mild central canal stenosis. There is mild bilateral neural foraminal stenosis. L4-L5: Broad-based disc bulge with ligamentum flavum buckling and bilateral facet arthropathy results in mild to moderate central canal stenosis. There is moderate right and mild left neural foraminal s tenosis. L5-S1: The intervertebral disc appears round on its contour posteriorly without significant mass eff ect upon the thecal sac. Facet joints are enlarged. Mild to moderate right neural foraminal stenosis . The left neural foramen is patent. Other significant findings: Left renal sinus cysts redemonstrated. Dilated common bile duct measuring up to 1.4 cm again demonstrated. IMPRESSION: 1. No definitive evidence for disc herniation. 2. Multilevel disc degeneration with facet arthropathy. This is most pronounced at L4-L5 with mild t o moderate central canal stenosis. There is moderate right and mild left neural foraminal stenosis at this level. Additional disc bulge at L3-L4 causing mild central canal stenosis. Mild bilateral neura l foraminal stenosis at this level. 3. Dextroscoliotic curvature of the lumbar spine. 4. Dilated common bile duct measuring up to 1.4 cm redemonstrated. Correlation with biliary obstructi ve labs is recommended. Consider further evaluation with MRCP as clinically indicated.
== END | disposition home or self-care (01) ==
LOC: RADMRIMAIN 07:55
PROVIDERS: ATTEND Internal Medicine
DX: M51.36 Other intervertebral disc degeneration, lumbar region (principal); M47.816 Spondylosis without myelopathy or radiculopathy, lumbar region; M48.061 Spinal stenosis, lumbar region without neurogenic claudication; K83.8 Other specified diseases of biliary tract
CPT/HCPCS: 72148

== ENCOUNTER → 2024-01-12 | Outpatient (CLI) | payer MEDICARE, BC | LOC: LABWHC1 11:11 | PROVIDERS: ATTEND Internal Medicine | DX: Z53.9 Procedure and treatment not carried out, unspecified reason (principal) | CPT/HCPCS: 72148 ==

== ENCOUNTER → 2024-06-14 | Outpatient (CLI) | payer MEDICARE, BC ==
[2024-06-14 11:20] VITALS: BP 160/84; PULSE 60; RESP 17; TEMP 97.5
--- NOTE | 2024-06-14 15:04 | P.PAINPG ---
PQRS Measure Charge Sheet Comment: HISTORY OF PRESENT ILLNESS: A 84 yr old female as a referral from Dr Carrillo presents today w severe and chronic LBP > 1 yr secondary to radiculopathy, spondylosis and facet arthropathy without myelopathy for evaluation. Pt states pain level is provoked at 7-8 /10 in intensity, constant, localized in the lumbar spine, predominantly axial, sore in character without shooting pain. Pain is provoked by bending, twisting. Pain is alleviated by PT x 6 wks which ended in Spring 2023, physician guided home stretches daily since early 2023, medications (Ibu), topical, repositioning and rest . Oswestry axial pain score at 38. PMH: OA, Uterine CA, GERD, HTN, NM, Hyperlipidemia, Hypothyroidism, Nephrolithiasis, HH PSH: Lithotripsy (2023), Knee Fracture (2023), Thyroid Biopsy x2, Hysterectomy, Oophorectomy, D&C x2, Bunionectomies, BL Cataract Resection w Lens Implants, HH Repair, Hx Ectopic w Partial Hysterectomy, Colonoscopy, R Ureteral Stent SH: Negative x3 FH: Daughter- Cervical CA. Sis- Bowel/ Liver/ Bone CA, DM. Fa- Bowel CA, MVP All: See list Meds: See list REVIEW OF ORGAN SYSTEMS: CONSTITUTIONAL: No fevers or chills. No recent weight loss. NEUROLOGICAL: + numbness and tingling along the distal extremities. No seizure disorders or headaches. MUSCULOSKELETAL: + pain PSYCHIATRIC: Denies current depression or suicidal thoughts. Physical Examinations : Constitutional : Cooperative , not in acute distress . Neurologic : Cranial nerve II to XII intact. No focal neurological deficits. Psychiatric : alert & oriented x 3. Matching mood & appropriate affect. Judgment & insight intact. Musculoskeletal : Cervical Spine Motor strength in the deltoid and biceps: Normal right side. Normal Left side Motor strength biceps and the wrist extensors: Normal right side . Normal left side Motor strength in the triceps muscle: Normal right side. Normal left side Deep tendon reflexes: Normal at the biceps. Normal at Brachioradialis. Normal at triceps Vertebral body tenderness to deep palpation over Cervical facet loading test: positive bilaterally Spurling test: positive bilaterally Neck distraction test: positive bilaterally Boogie sign: positive bilaterally Lumbar spine Motor strength lower extremities ,thigh and legs 5/5 Right side , 5/5 Left side Deep tendon reflexes : Normal Knee Jerk. Normal Ankle Jerk Vertebral body tenderness over L3 Denton Test positive R < L L3-L4 Lumbar facet Loading Test: positive Right / positive Left Range of motion of the lumbar spine Flexion 30 degrees, extension 10 degrees Straight Leg Raise test: Left/ Right positive at degrees Isacc test: positive right / positive left. Severe tenderness over the Sacroiliac joint on the Right / Left sides Gaenslen test: positive bilaterally Seated flexion test: positive bilaterally. Sacral spine : Severe tenderness over the Sacroiliac joint: right side / left side Range of motion: Flexion of the lumbar spine <60 degrees Range of motion: Extension of the lumbar spine <20 degrees Gaenslen's Test positive Isacc test: positive right side / left side Thigh Thrust Test Sacral Thrust Test Imaging: MRI non contrast lumbar spine from 01/12/24 reviewed Assessment/ Plan : Lumbar radiculopathy Recommendation of CYNDY L3-L4 #1. Risks, benefits of procedure discussed and patient verbalized understanding. Admits to anti- coagulant use or medical history of diabetes. Protocol for discontinuation/ continuation of medications abel procedure discussed. All questions answered. I have spent greater than 30 minutes on patient care today. Dr Araya was available by phone for the evaluation of this patient. The time was used to review the medical records including relevant urine studies and Prescription history (MAPs), review of the available imaging, evaluation and examination of the patient, coordination of care with the medical staff and if applicable referring physicians, as well as creation of the medical record PQRS Narrative: Smoking Status Never smoker Home Medications: Ambulatory Orders Irbesartan/Hydrochlorothiazide [Irbesartan-Hctz 150-12.5 mg Tb] 1 tab PO DAILY@139905/07/15 Ferrous Sulfate [Iron (65 MG Elemental)] 325 mg PO DAILY@139911/21/17 Montelukast Sodium [Singulair] 10 mg PO DAILY@139911/21/17 Ubidecarenone [Co Q-10] 200 mg PO DAILY@139911/21/17 Folic Acid 0.8 mg PO DAILY@139908/02/22 Rosuvastatin [Crestor] 10 mg PO DAILY@139910/22/22 Ascorbic Acid [Vitamin C] 500 mg PO DAILY@139907/02/23 Aspirin [Adult Low Dose Aspirin EC] 81 mg PO DAILY@139907/02/23 Calcium/Magnesium/Vitamin D3 1 tab PO DAILY@139907/02/23 Cyanocobalamin (Vitamin B-12) [Vitamin B-12] 1,000 mcg PO DAILY@139907/02/23 Super B-Complex W/Vtiamin C 1 tab PO DAILY@139907/02/23 Zinc 30mg 30 mg PO DAILY@139907/02/23 nadoloL 40 mg PO DAILY@139907/02/23 Controlled Substance Measures - Controlled Substance Measures Is patient prescribed a controlled substance at discharge?: No
== END ==
LOC: PNWHC3 10:29
PROVIDERS: ATTEND Specialist
DX: M54.16 Radiculopathy, lumbar region (principal); G89.29 Other chronic pain; Z88.1 Allergy status to other antibiotic agents; Z91.041 Radiographic dye allergy status
CPT/HCPCS: 99211

== ENCOUNTER → 2024-09-04 | Outpatient (CLI) | payer MEDICARE, BC ==
--- NOTE | 2024-09-04 08:30 | MR ---
EXAMINATION TYPE: MR liver wo/w con and mrcp DATE OF EXAM: 09/04/2024 7:51 AM COMPARISON: 11/27/2022. 07/02/2023. CLINICAL INDICATION: Female, 84 years old with history of R16.0 LIVER MASS; PHH, F/U to Abnormal MRI TECHNIQUE MRI ABDOMEN WITH CONTRAST: Multiplanar multi-sequence imaging was performed without and wit h IV contrast/gadolinium. The patient was given 7 cc Gadobutrol gadolinium intravenously and dynamic post-VIBE (volumetric interpolated breath-hold gradient recall echo) imaging was performed. IV Contrast: 7 mL Gadobutrol (None, if empty) TECHNIQUE MRCP ABDOMEN WITHOUT CONTRAST: Multi planar, T2-weighted imaging with and without fat satur ation and chemical shift imaging was performed of the abdomen. Then, heavily T2 weighted imaging (gopal f-Fourier acquisition single-shot turbo spin-echo) was utilized in order to study the biliary system. Maximum intensity projection images were reconstructed from the original data of the biliary tree. 3D reconstructions and MIP imaging performed on a separate workstation. FINDINGS: MRCP: Mild intrahepatic central biliary dilation.. The common bile duct at the level of the pancreat ic head measures r mm in size. The common hepatic duct measures 9 mm in size. The pancreatic duct is normal. The gallbladder appears to have layering debris within the head. Wall thickening suggestive of adenom yomatosis series 701 image 35.. Filling defect within the distal common bile duct series 301 image 17 measuring 6 mm. LOWER CHEST: Heart is mildly enlarged for size similar prior. ABDOMEN Liver: Left hepatic lobe high T2 signal complex cystic lesion measures similar at 2.3 x 2.8 x 2.2 cm. No abnormal postcontrast enhancement. Mildly increased in size from 2013. Diffuse signal dropout on chemical shift in phase imaging is unchanged. Pancreas: Subtle pancreatic tail 6 mm high T2 signal focus and possible pancreatic neck 6 mm lesion s eries 801 image 27 . No abnormal postcontrast enhancement. Spleen: Signal dropout on chemical shift in phase imaging. Adrenal glands: Right adrenal nodule measuring 16 mm Kidneys: Parapelvic cysts on the left with some cortical simple appearing renal cysts. Stomach and Bowel: Moderate hiatal hernia. No evidence for bowel obstruction. Scattered colonic diver ticula. Peritoneum: No evidence of pneumoperitoneum or free fluid. Vasculature: Unremarkable. No aortic aneurysm. Musculoskeletal: The osseous structures appear intact. Lymph Nodes: No gross evidence for lymphadenopathy. Abdominal wall: Unremarkable. IMPRESSION: 1. Stable Cystic structure in the left hepatic lobe, differential remains cluster of cysts versus bi liary cystadenoma and other etiologies could also be considered. Attention on follow-up imaging consi karie CT for surveillance. This has slowly increased in size from 2013. 2. 16 mm right adrenal nodule is stable from priors. This most compatible with lipid rich adrenal ad enoma on CT imaging. 3. Persistent suspected filling defect within the common bile duct near the ampulla measuring 6 mm w hich could represent biliary debris versus mass. Possibly artifact versus stone. 4. 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 5. 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 Follow-up in one year for stability is recommended with MRI MRCP. 6. Similar Iron deposition within the liver and spleen. 7. Similar Simple appearing renal cysts. 8. Similar Moderate hiatal hernia. 9. Similar mild cardiomegaly. [facility], , 09/04/2024 8:28 AM
== END | disposition home or self-care (01) ==
LOC: RADMRIMAIN 06:21
PROVIDERS: ATTEND Internal Medicine
DX: R16.0 Hepatomegaly, not elsewhere classified (principal); N28.1 Cyst of kidney, acquired; K44.9 Diaphragmatic hernia without obstruction or gangrene; I51.7 Cardiomegaly; Q44.6 Cystic disease of liver
CPT/HCPCS: 74183; A9585

== ENCOUNTER → 2024-10-16 | Outpatient (CLI) | payer MEDICARE, BC ==
--- NOTE | 2024-10-16 10:30 | MM ---
Reason for Exam: Screening (asymptomatic). Last mammogram was performed 1 year(s) and 2 month(s) ago. Patient History: Menarche at age 12. First Full-Term at age 17. Left ovary removed at age 49. Right ovary removed at age 49. Hysterectomy at age 49. Postmenopausal. Patient has history of breast feeding. Endometrial cancer, age 49. Estrogen for 9 years, 7 months, from age 56 until age 65. 06/28/2012, Benign Cyst Aspiration on the left side. Risk Values: Yesica 5 year model risk: 0.9%. NCI Lifetime model risk: 0.9%. Prior Study Comparison: 06/19/2021 Bilateral Screening Mammogram, [facility]. 07/02/2022 Bilateral MG 3D screening mammo w/cad, [facility]. 08/24/2023 Bilateral MG 3D screening mammo w/cad, [facility]. Tissue Density: There are scattered areas of fibroglandular density. Findings: Analyzed By CAD. There are benign-appearing vascular calcifications are redemonstrated bilaterally. There are additional scattered small benign-appearing round calcifications bilaterally. There is stable circumscribed round 6 mm lesion in the left breast medial aspect. Benign-appearing bilateral axillary lymph nodes are redemonstrated. There is no suspicious new group of microcalcifications or new suspicious mass in either breast. Overall Assessment: Benign, BI-RAD 2 Management: Screening Mammogram of both breasts in 1 year. . Patient should continue monthly self-breast exams. A clinical breast exam by your physician is recommended on an annual basis. This exam should not preclude additional follow-up of suspicious palpable abnormalities. Note on Yesica scores and lifetime risk: 1. A Yesica score greater than 3% is considered moderate risk. If this is the case, consider specialist referral to assess eligibility for a risk reducing agent. 2. If overall lifetime risk for the development of breast cancer is 20% or higher, the patient may qualify for future screening with alternating mammogram and breast MRI. [facility], , 10/16/2024 10:26 AM. Electronically signed and approved by: Eugenio Styles M.D.
== END | disposition home or self-care (01) ==
LOC: RADMAMWWP 09:49
PROVIDERS: ATTEND Internal Medicine
DX: Z12.31 Encounter for screening mammogram for malignant neoplasm of breast (principal); R92.1 Mammographic calcification found on diagnostic imaging of breast; R92.323 Mammographic fibroglandular density, bilateral breasts; Z78.0 Asymptomatic menopausal state
CPT/HCPCS: 77063; 77067